=== PATIENT | female | born 1975 | race Caucasian/White ===

== ENCOUNTER 2017-03-08 14:47 | Emergency (ER) | payer OTHER ==
[2017-03-08 15:35] VITALS: BP 131/76; PULSE 90; RESP 18; TEMP 97.1
[2017-03-08] MEDS ORDERED: BACITRACIN 500 UNIT/GM OINT 28.4 GM TUBE TOPICAL ONE (16:06)
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
== END 2017-03-08 16:25 | disposition home or self-care (01) ==
LOC: EC 14:47
DX: T23.201A Burn of second degree of right hand, unspecified site, initial encounter (principal); Z88.2 Allergy status to sulfonamides; F17.200 Nicotine dependence, unspecified, uncomplicated; X08.8XXA Exposure to other specified smoke, fire and flames, initial encounter; Y92.69 Other specified industrial and construction area as the place of occurrence of the external cause
CPT/HCPCS: 16020; 99283

== ENCOUNTER 2020-08-24 18:46 | Emergency (ER) | payer OTHER ==
[2020-08-24] MEDS ORDERED: ACETAMINOPHEN TAB 500 MG TAB PO STA (19:14)
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
[2020-08-24] MEDS ORDERED: BACITRACIN OINT 1 EACH PACKET TOPICAL ONE (20:11)
[2020-08-24] MEDS ORDERED: LIDOCAINE 1% INJ 10MG/ML (20 ML MDV) SQ ONE (20:11)
[2020-08-24] MEDS ORDERED: ONDANSETRON ODT 4 MG TAB PO STA (20:44)
[2020-08-24] MEDS ORDERED: ACET/COD 300 MG/30 MG STARTER PACK 6 TAB BTL PO STA (21:08)
[2020-08-24 21:26] VITALS: BP 125/86; PULSE 88; RESP 16; TEMP 98.9
== END 2020-08-24 21:15 | disposition home or self-care (01) ==
LOC: EC 18:46
DX: S01.81XA Laceration without foreign body of other part of head, initial encounter (principal); S01.01XA Laceration without foreign body of scalp, initial encounter; S16.1XXA Strain of muscle, fascia and tendon at neck level, initial encounter; S05.41XA Penetrating wound of orbit with or without foreign body, right eye, initial encounter; S60.222A Contusion of left hand, initial encounter; F17.200 Nicotine dependence, unspecified, uncomplicated; Z88.2 Allergy status to sulfonamides; V69.9XXA Occupant (driver) (passenger) of heavy transport vehicle injured in unspecified traffic accident, initial encounter; Y92.410 Unspecified street and highway as the place of occurrence of the external cause
CPT/HCPCS: 73130; 72125; 70486; 70450; 99284; 12013; 12001; J2001

== ENCOUNTER → 2021-07-03 | Outpatient (CLI) | payer OTHER ==
--- NOTE | 2021-07-03 13:15 | XR ---
EXAMINATION TYPE: XR chest 2V DATE OF EXAM: 07/03/2021 COMPARISON: NONE TECHNIQUE: PA and lateral views submitted. HISTORY: Preop FINDINGS: The lungs are clear and there is no pneumothorax, pleural effusion, or focal pneumonia. Heart size normal. No overt failure. Mild hyperinflation. Hypertrophic and degenerative change of the spine. IMPRESSION: 1. No acute process.
[2021-07-03 14:07] LABS: Appearance,Urine Clear (Clear); Bilirubin,Urine Negative (Negative); Blood,Urine Negative (Negative); Color,Urine Yellow; Glucose,Urine (UA) Negative (Negative); Ketones,Urine Trace (Negative); Leukocyte Esterase,Urine Negative (Negative); Nitrite,Urine Negative (Negative); PH, Urine 5.5 (5.0-8.0); Protein,Urine Negative (Negative); Specific Gravity,Urine 1.024 (1.001-1.035); Urobilinogen,Urine <2.0 mg/dL (<2.0)
[2021-07-03 14:23] LABS: INR 0.9 (<1.2); Partial Thromboplastin Time 24.3 sec (22.0-30.0); Prothrombin Time 9.9 sec (9.0-12.0)
[2021-07-03 21:49] LABS: Basophils # (A) 0.03 X 10*3/uL (0.00-0.10); Basophils % (A) 0.5 %; Eosinophils # (A) 0.09 X 10*3/uL (0.04-0.35); Eosinophils % (A) 1.4 %; HCT 38.5 % (37.2-46.3); HGB 12.7 g/dL (12.0-15.0); Lymphocytes # (A) 1.41 X 10*3/uL (0.90-5.00); Lymphocytes % (A) 22.6 %; MCH 32.2 pg (27.0-32.0); MCV 97.7 fL (80.0-97.0); Mean Platelet Volume 10.6 fL (9.5-12.2); Monocytes # (A) 0.41 X 10*3/uL (0.20-1.00); Monocytes % (A) 6.6 %; Neutrophils # (A) 4.28 X 10*3/uL (1.80-7.70); Neutrophils % (A) 68.6 %; Platelet Count 239 X 10*3/uL (140-440); RBC 3.94 X 10*6/uL (4.10-5.20); RDW 13.2 % (11.5-14.5); WBC 6.24 X 10*3/uL (4.50-10.00)
[2021-07-04 04:05] LABS: African American GFR (CKD) 119.6 (60.0-200.0); Albumin 4.5 g/dL (3.80-4.90); Albumin/Globulin Ratio 1.96 (1.60-3.17); Anion Gap 10.6 mmol/L (4.00-12.00); BUN/Creat Ratio 28.57 Ratio (12.00-20.00); Carbon Dioxide 24.4 mmol/L (21.6-31.8); Globulin 2.3 g/dL (1.6-3.3); Non-African American GFR(CKD) 103.2 (60.0-200.0); Potassium 3.6 mmol/L (3.5-5.5); Total Bilirubin 0.8 mg/dL (0.2-1.2); Total Protein 6.8 g/dL (6.2-8.2)
== END | disposition home or self-care (01) ==
LOC: LABWHC1 12:25
PROVIDERS: ATTEND Specialist
DX: Z01.818 Encounter for other preprocedural examination (principal); M43.16 Spondylolisthesis, lumbar region; M48.061 Spinal stenosis, lumbar region without neurogenic claudication
CPT/HCPCS: 36415; 71046; 80053; 81003; 85025; 85610; 85730; 87070; 93005

== ENCOUNTER 2022-07-13 13:18 | Emergency (ER) | payer OTHER ==
[2022-07-13 13:33] VITALS: RESP 16; TEMP 97.7
[2022-07-13] MEDS ORDERED: LIDOCAINE 1% INJ 10MG/ML (20 ML MDV) SQ ONE (14:54)
[2022-07-13] MEDS ORDERED: CEFDINIR 300 MG CAP PO STA (16:01)
[2022-07-13] MEDS ORDERED: CLINDAMYCIN 150 MG CAP PO STA (16:01)
--- NOTE | 2022-07-13 16:09 | ED ---
Female Urogenital HPI - General Chief complaint: Urogenital Stated complaint: cyst Time Seen by Provider: 07/13/22 14:45 Source: patient Mode of arrival: ambulatory Limitations: no limitations - History of Present Illness Initial comments: 46-year-old female who presents to emergency room in with reported left labial pain. States that she has had multiple infected Bartholin cysts. She has had it drained "11" times. She has had swelling to the region for the past 3 weeks and it continues to grow in size. She was placed on Bactrim on . Re ports that it was draining however stopped. She denies vaginal bleeding or discharge. No hematuria, dysuria or difficult voiding. No changes in her bowel habits. No fevers. No other alleviating, precipitating or modifying factors - Related Data Previous Rx's Medication Instructions Recorded DULoxetine HCL 60 mg PO DAILY #30 cap 09/03/14 Ciprofloxacin HCl [Cipro] 500 mg PO Q12HR #20 tablet 09/25/14 traMADol HCl [Ultram] 50 mg PO Q6H PRN #20 tab 09/25/14 Amoxicillin/Potassium Clav 1 each PO Q12HR #20 tab 05/13/15 [Augmentin 875-125 Tablet] Ibuprofen [Motrin] 600 mg PO Q6HR PRN #20 tab 05/13/15 Cyclobenzaprine [Flexeril] 10 mg PO TID #20 tab 06/09/16 Hydrocodone/Acetaminophen [[place] 1 each PO Q6HR PRN #20 tab 06/09/16 5-325] dexAMETHasone 0.75 mg PO DIRECTED #12 tablet 06/09/16 Acetaminophen-Codeine 300-30mg 1 tab PO Q4H PRN #20 tablet 03/08/17 [Tylenol #3] Ibuprofen [Motrin] 600 mg PO Q8HR PRN #30 tab 03/08/17 ceFIXime [Cefixime] 400 mg PO QID #28 cap 07/13/22 clindamycin HCL [Cleocin] 300 mg PO Q6HR #28 cap 07/13/22 Allergies Allergy/AdvReac Type Severity Reaction Status Date / Time Sulfa (Sulfonamide Allergy Severe Rash/Hives Verified 07/13/22 13:34 Antibiotics) Review of Systems ROS Statement: Those systems with pertinent positive or pertinent negative responses have been documented in the HPI. ROS Other: All systems not noted in ROS Statement are negative. Past Medical History Past Medical History: No Reported History Additional Past Medical History / Comment(s): KIDNEY STONES History of Any Multi-Drug Resistant Organisms: None Reported Past Surgical History: Section, Hysterectomy Additional Past Surgical History / Comment(s): breast augmentation, Past Anesthesia/Blood Transfusion Reactions: No Reported Reaction Past Psychological History: Anxiety, Depression Smoking Status: Current every day smoker Past Alcohol Use History: Daily Past Drug Use History: None Reported General Exam Limitations: no limitations General appearance: alert, in no apparent distress Head exam: Present: normal inspection External exam: Present: other (induration to the left labia. no fluctuance. no pustular drainage - induration at the 4:00 position. no vaginal discharge. No vesicular lesions. no ecchymosis or lacerations. ) Course Vital Signs 07/13/22 07/13/22 13:30 16:42 Temperature 97.7 F Pulse Rate 89 88 Respiratory 16 16 Rate Blood Pressure 140/86 142/93 O2 Sat by Pulse 98 98 Oximetry Procedures - Incision & Drainage Consent Obtained: verbal consent Indication: abscess Site: vulva/vagina Size (cm): 2 Anesthetic Used: lidocaine 1% Amount (mLs): 5 I&D Cleaning Method: Chloroprep Sterile Field Used?: Yes Scalpel Used: #11 Needle Aspiration Performed?: No Irrigation Performed?: No I&D Drainage Obtained: Blood Culture Obtained?: No Patient Tolerated Procedure: well, other (no pustular drainage) Medical Decision Making - Medical Decision Making Upon arrival patient placed into room 22. Thorough history and physical exam is performed. Ultrasound is utilized which demonstrates possible fluid pocket. I did anesthetize the patient using 4 mL of 1% lidocaine without epinephrine. An incision is then made using an 11 blade scalpel. I am only able to express clotted blood. No pustular drainage. Patient does have significant induration to the tissue and therefore antibiotic will be changed to clindamycin and Cefixime. Patient will be given follow-up information for [employer] she may need further surgical procedure to definitively treat her Bartholin cyst. She is in structed to return for any worsening symptoms for patient was agreeable and discharged home in stable condition Disposition Clinical Impression: Cyst of Bartholin's gland duct, Vulval cellulitis Disposition: HOME SELF-CARE Condition: Stable Instructions (If sedation given, give patient instructions): Bartholin Cyst (ED) Additional Instructions: Please take the antibiotics as directed and follow up with the [employer] O[employer]. You may need permanent treatment for your Bartholin cyst. Return to the emergency room for any new or worsening symptoms Prescriptions: ceFIXime [Cefixime] 400 mg PO QID #28 cap clindamycin HCL [Cleocin] 300 mg PO Q6HR #28 cap Is patient prescribed a controlled substance at d/c from ED?: No Referrals: Nixon Nguyen MD [Primary Care Provider] - 1-2 days Kandice Grant MD [STAFF PHYSICIAN] - 1-2 days Caitlin Dey DO [Doctor of Osteopathic Medicine] - 1-2 days Time of Disposition: 16:07
[2022-07-13 16:44] VITALS: BP 142/93; PULSE 88
== END 2022-07-13 16:44 | disposition home or self-care (01) ==
LOC: EC 13:18
DX: N75.0 Cyst of Bartholin's gland (principal); N76.2 Acute vulvitis; L03.90 Cellulitis, unspecified; F41.9 Anxiety disorder, unspecified; F32.A Depression, unspecified; F17.200 Nicotine dependence, unspecified, uncomplicated; Z88.2 Allergy status to sulfonamides; Z79.899 Other long term (current) drug therapy
CPT/HCPCS: 99282; 10060; J2001

== ENCOUNTER 2023-04-27 14:50 | Observation (INO) | payer OTHER ==
[2023-04-27] MEDS ORDERED: SODIUM CHLORIDE 0.9% 1,000 ML IV STA ×2 (14:58→16:59)
--- NOTE | 2023-04-27 15:01 | ED ---
Abdominal Pain HPI - General Chief Complaint: Abdominal Pain Stated Complaint: Abd Pain Time Seen by Provider: 04/27/23 14:57 Source: patient, EMS, RN notes reviewed, old records reviewed Mode of arrival: EMS Limitations: no limitations - History of Present Illness Initial Comments: This is a 47-year-old female DF today for evaluation of abdominal pain nausea vomiting and severe abdominal pain. Patient has no fevers no diarrhea denies any other complaints. Patient states symptoms 5 days and severely worsening. Patient does have history of hysterectomy MD Complaint: abdominal pain -: days(s) (5) Location: periumbilical, epigastric, suprapubic Radiation: epigastric, suprapubic Migration to: periumbilical, epigastric, suprapubic, bilateral flank Severity: severe Severity scale (1-10): 10 Quality: cramping, stabbing, aching Consistency: constant Improves With: nothing Worsens With: nothing Associated Symptoms: nausea, vomiting, diarrhea Treatments Prior to Arrival: other (0) - Related Data Previous Rx's Medication Instructions Recorded DULoxetine HCL 60 mg PO DAILY #30 cap 09/03/14 Ciprofloxacin HCl [Cipro] 500 mg PO Q12HR #20 tablet 09/25/14 traMADol HCl [Ultram] 50 mg PO Q6H PRN #20 tab 09/25/14 Amoxicillin/Potassium Clav 1 each PO Q12HR #20 tab 05/13/15 [Augmentin 875-125 Tablet] Ibuprofen [Motrin] 600 mg PO Q6HR PRN #20 tab 05/13/15 Cyclobenzaprine [Flexeril] 10 mg PO TID #20 tab 06/09/16 Hydrocodone/Acetaminophen [[place] 1 each PO Q6HR PRN #20 tab 06/09/16 5-325] dexAMETHasone [Decadron] 0.75 mg PO DIRECTED #12 tablet 06/09/16 Acetaminophen-Codeine 300-30mg 1 tab PO Q4H PRN #20 tablet 03/08/17 [Tylenol #3] Ibuprofen [Motrin] 600 mg PO Q8HR PRN #30 tab 03/08/17 ceFIXime [Cefixime] 400 mg PO QID #28 cap 07/13/22 clindamycin HCL [Cleocin] 300 mg PO Q6HR #28 cap 07/13/22 Allergies Allergy/AdvReac Type Severity Reaction Status Date / Time Sulfa (Sulfonamide Allergy Severe Rash/Hives Verified 07/13/22 13:34 Antibiotics) Review of Systems ROS Statement: Those systems with pertinent positive or pertinent negative responses have been documented in the HPI. ROS Other: All systems not noted in ROS Statement are negative. Past Medical History Past Medical History: No Reported History Additional Past Medical History / Comment(s): KIDNEY STONES History of Any Multi-Drug Resistant Organisms: None Reported Past Surgical History: Section, Hysterectomy Additional Past Surgical History / Comment(s): breast augmentation, Past Anesthesia/Blood Transfusion Reactions: No Reported Reaction Past Psychological History: Anxiety, Depression Smoking Status: Current every day smoker Past Alcohol Use History: Daily Past Drug Use History: None Reported General Exam Limitations: no limitations General appearance: alert, in no apparent distress Head exam: Present: atraumatic, normocephalic, normal inspection Eye exam: Present: normal appearance, PERRL, EOMI. Absent: scleral icterus, conjunctival injection, periorbital swelling ENT exam: Present: normal exam, mucous membranes moist Neck exam: Present: normal inspection. Absent: tenderness, meningismus, lymphadenopathy Respiratory exam: Present: normal lung sounds bilaterally. Absent: respiratory distress, wheezes, rales, rhonchi, stridor Cardiovascular Exam: Present: regular rate, normal rhythm, normal heart sounds. Absent: systolic murmur, diastolic murmur, rubs, gallop, clicks GI/Abdominal exam: Present: soft, normal bowel sounds. Absent: distended, tenderness, guarding, rebound, rigid Extremities exam: Present: normal inspection, full ROM, normal capillary refill. Absent: tenderness, pedal edema, joint swelling, calf tenderness Back exam: Present: normal inspection Neurological exam: Present: alert, oriented X3, CN II-XII intact Psychiatric exam: Present: normal affect, normal mood Skin exam: Present: warm, dry, intact, normal color. Absent: rash Course Vital Signs 04/27/23 04/27/23 14:55 16:37 Temperature 97.4 F L Pulse Rate 76 53 L Respiratory 18 18 Rate Blood Pressure 135/82 114/82 O2 Sat by Pulse 96 96 Oximetry - Reevaluation(s) Reevaluation #1: 04/27/23 15:41 Medical record is reviewed Reevaluation #2: 04/27/23 15:41 Patient symptoms are improving Reevaluation #3: 04/27/23 15:41 Patient for results questions answered Reevaluation #4: 04/27/23 15:01 Was pt. sent in by a medical professional or institution? @ -no Did you speak to anyone other than the patient for history? @ -no Did you review nursing and triage notes? @ -agree Were old charts reviewed? @ -yes Differential Diagnosis? @ -prior EKG interpreted by me (3pts min.)? @ -yes X-rays interpreted by me (1pt min.)? @ -yes CT interpreted by me (1pt min.)? @ -no U/S interpreted by me (1pt. min.)? @ -no What testing was considered but not performed? (CT, X-rays, U/S, labs)? Why? @ -no What meds were considered but not given? Why? @ -no Did you discuss the management of the patient with other professionals? @ -no Did you reconcile home meds? @ -no Was smoking cessation discussed for >3mins.? @ -no Was critical care preformed (if so, how long)? @ -no Were there social determinants of health that impacted care today? How? (Homelessness, low income, unemployed, alcoholism, drug addiction, transportation, low edu. Level, literacy, decrease access to med. care, nursing home, rehab)? @ -no Was there de-escalation of care discussed even if they declined? (Discuss DNR or withdrawal of care, Hospice)? @ -no What co-morbidities impacted this encounter? (DM, HTN, Smoking, COPD, CAD, Cancer, CVA, Hep., AIDS, mental health diagnosis, sleep apnea, morbid obesity)? @ -none Was patient admitted / discharged? @ - Undiagnosed new problem with uncertain prognosis? @ -no Drug Therapy requiring intensive monitoring for toxicity (Heparin, Nitro, Insulin, Cardizem)? @ -no Were any procedures done? @ -no Diagnosis/symptom? @ - Acute, or Chronic, or Acute on Chronic? @ -acute Uncomplicated (without systemic symptoms) or Complicated (systemic symptoms)? @ -complicated Side effects of treatment? @ -no Exacerbation, Progression, or Severe Exacerbation] @ -no Poses a threat to life or bodily function? @ -yes Medical Decision Making - Lab Data Result diagrams: 04/27/23 14:59 04/27/23 14:59 Lab Results 04/27/23 04/27/23 04/27/23 Range/Units 14:59 14:59 14:59 WBC 7.2 (3.8-10.6) k/uL RBC 4.52 (3.80-5.40) m/uL Hgb 14.9 (11.4-16.0) gm/dL Hct 46.0 (34.0-46.0) % MCV 101.7 H (80.0-100.0) fL MCH 32.9 (25.0-35.0) pg MCHC 32.4 (31.0-37.0) g/dL RDW 13.2 (11.5-15.5) % Plt Count 215 (150-450) k/uL MPV 8.7 Neutrophils % 76 % Lymphocytes % 17 % Monocytes % 5 % Eosinophils % 1 % Basophils % 0 % Neutrophils # 5.4 (1.3-7.7) k/uL Lymphocytes # 1.2 (1.0-4.8) k/uL Monocytes # 0.4 (0-1.0) k/uL Eosinophils # 0.1 (0-0.7) k/uL Basophils # 0.0 (0-0.2) k/uL Macrocytosis Slight Sodium (137-145) mmol/L Potassium (3.5-5.1) mmol/L Chloride (98-107) mmol/L Carbon Dioxide (22-30) mmol/L Anion Gap mmol/L BUN (7-17) mg/dL Creatinine (0.52-1.04) mg/dL Est GFR (CKD-EPI)AfAm (>60 ml/min/1.73 sqM) Est GFR (CKD-EPI)NonAf (>60 ml/min/1.73 sqM) Glucose (74-99) mg/dL Calcium (8.4-10.2) mg/dL Total Bilirubin (0.2-1.3) mg/dL AST (14-36) U/L ALT (4-34) U/L Alkaline Phosphatase (38-126) U/L Total Protein (6.3-8.2) g/dL Albumin (3.5-5.0) g/dL Amylase (30-110) U/L Lipase (23-300) U/L Urine Color Light Yellow Urine Appearance Clear (Clear) Urine pH 5.5 (5.0-8.0) Ur Specific [place] 1.014 (1.001-1.035) Urine Protein Negative (Negative) Urine Glucose (UA) Negative (Negative) Urine Ketones 1+ H (Negative) Urine Blood Negative (Negative) Urine Nitrite Negative (Negative) Urine Bilirubin Negative (Negative) Urine Urobilinogen <2.0 (<2.0) mg/dL Ur Leukocyte Esterase Negative (Negative) Urine HCG, Qual Not Detected (Not Detectd) 04/27/23 Range/Units 14:59 WBC (3.8-10.6) k/uL RBC (3.80-5.40) m/uL Hgb (11.4-16.0) gm/dL Hct (34.0-46.0) % MCV (80.0-100.0) fL MCH (25.0-35.0) pg MCHC (31.0-37.0) g/dL RDW (11.5-15.5) % Plt Count (150-450) k/uL MPV Neutrophils % % Lymphocytes % % Monocytes % % Eosinophils % % Basophils % % Neutrophils # (1.3-7.7) k/uL Lymphocytes # (1.0-4.8) k/uL Monocytes # (0-1.0) k/uL Eosinophils # (0-0.7) k/uL Basophils # (0-0.2) k/uL Macrocytosis Sodium 143 (137-145) mmol/L Potassium 3.8 (3.5-5.1) mmol/L Chloride 114 H (98-107) mmol/L Carbon Dioxide 16 L (22-30) mmol/L Anion Gap 13 mmol/L BUN 8 (7-17) mg/dL Creatinine 0.56 (0.52-1.04) mg/dL Est GFR (CKD-EPI)AfAm >90 (>60 ml/min/1.73 sqM) Est GFR (CKD-EPI)NonAf >90 (>60 ml/min/1.73 sqM) Glucose 101 H (74-99) mg/dL Calcium 9.5 (8.4-10.2) mg/dL Total Bilirubin 0.9 (0.2-1.3) mg/dL AST 42 H (14-36) U/L ALT 35 H (4-34) U/L Alkaline Phosphatase 117 (38-126) U/L Total Protein 6.8 (6.3-8.2) g/dL Albumin 4.0 (3.5-5.0) g/dL Amylase 92 (30-110) U/L Lipase 248 (23-300) U/L Urine Color Urine Appearance (Clear) Urine pH (5.0-8.0) Ur Specific [place] (1.001-1.035) Urine Protein (Negative) Urine Glucose (UA) (Negative) Urine Ketones (Negative) Urine Blood (Negative) Urine Nitrite (Negative) Urine Bilirubin (Negative) Urine Urobilinogen (<2.0) mg/dL Ur Leukocyte Esterase (Negative) Urine HCG, Qual (Not Detectd) Disposition Referrals: Nixon Nguyen MD [Primary Care Provider] - 1-2 days
[2023-04-27] MEDS ORDERED: LORazepam 2 MG/ML INJ IV STA (15:03)
[2023-04-27] MEDS ORDERED: HYDROmorphone 1 MG/ML 1 ML SYRINGE IVP STA ×2 (15:04→16:59)
[2023-04-27 15:21] LABS: Basophils % (A) 0 %; Eosinophils # (A) 0.1 k/uL (0-0.7); Eosinophils % (A) 1 %; HGB 14.9 gm/dL (11.4-16.0); Lymphocytes # (A) 1.2 k/uL (1.0-4.8); Lymphocytes % (A) 17 %; MCH 32.9 pg (25.0-35.0); MCHC 32.4 g/dL (31.0-37.0); MCV 101.7 fL (80.0-100.0); Macrocytosis Slight; Mean Platelet Volume 8.7; Monocytes # (A) 0.4 k/uL (0-1.0); Monocytes % (A) 5 %; Neutrophils # (A) 5.4 k/uL (1.3-7.7); Neutrophils % (A) 76 %; Platelet Count 215 k/uL (150-450); RBC 4.52 m/uL (3.80-5.40); RDW 13.2 % (11.5-15.5); WBC 7.2 k/uL (3.8-10.6)
[2023-04-27 15:38] LABS: ALT 35 U/L (4-34); AST 42 U/L (14-36); African American GFR (CKD) >90 (>60 ml/min/1.73 sqM); Alkaline Phosphatase 117 U/L (38-126); Amylase 92 U/L (30-110); Anion Gap 13 mmol/L; Blood Urea Nitrogen 8 mg/dL (7-17); Calcium 9.5 mg/dL (8.4-10.2); Carbon Dioxide 16 mmol/L (22-30); Chloride 114 mmol/L (98-107); Glucose 101 mg/dL (74-99); Lipase 248 U/L (23-300); Non-African American GFR(CKD) >90 (>60 ml/min/1.73 sqM); Potassium 3.8 mmol/L (3.5-5.1); Sodium 143 mmol/L (137-145); Total Bilirubin 0.9 mg/dL (0.2-1.3); Total Protein 6.8 g/dL (6.3-8.2)
[2023-04-27 16:49] LABS: Appearance,Urine Clear (Clear); Bilirubin,Urine Negative (Negative); Blood,Urine Negative (Negative); Color,Urine Light Yellow; Glucose,Urine (UA) Negative (Negative); Ketones,Urine 1+ (Negative); Leukocyte Esterase,Urine Negative (Negative); Nitrite,Urine Negative (Negative); PH, Urine 5.5 (5.0-8.0); Protein,Urine Negative (Negative); Specific Gravity,Urine 1.014 (1.001-1.035); Urobilinogen,Urine <2.0 mg/dL (<2.0)
[2023-04-27] MEDS ORDERED: ONDANSETRON 4 MG/2 ML VIAL IVP PRN (20:50)
[2023-04-27] MEDS ORDERED: NALOXONE 0.4 MG/ML 1 ML VIAL IV PRN (20:50)
--- NOTE | 2023-04-27 21:10 | CT ---
EXAMINATION TYPE: CT abdomen pelvis w con DATE OF EXAM: 04/27/2023 COMPARISON: 07/19/2013 INDICATION: Abdominal pain, N/V/D x5days. DLP: 554 mGycm, Automated exposure control for dose reduction was used. CONTRAST: 100 ml mL of Isovue 300. Study performed without Oral Contrast TECHNIQUE: Axial images were obtained from above the diaphragm to the pubic rami in the axial plane a t 5 mm thick sections. Reconstructed images are reviewed on the computer in the coronal plane. FINDINGS: Limited CT sections are obtained the lung bases. The lung bases are clear. CT ABDOMEN: Liver: Normal Spleen: Normal Pancreas: Normal Adrenal glands: The adrenal glands are normal. Gallbladder: Normal Kidneys: No masses are evident. No hydronephrosis is present. No cysts are present. Aorta: Normal Inferior vena cava: Normal. CT PELVIS: Loops of bowel within the abdomen and pelvis are normal. No dilated loops of bowel are evident. N o mass effect is evident. No fecal retention is evident.This study is without oral contrast limiting bowel evaluation. Appendix: Not identified. No dilated tubular structure or inflammatory changes are evident. Urinary bladder: Normal. Genitourinary structures: Uterus and ovaries are identified. Osseous structures: No suspicious lytic or sclerotic lesions. Being hardening artifact from pedicle s crews and fixation rods in the lower lumbar spine are present. IMPRESSIONS: 1. No acute changes to account for nausea or vomiting.
[2023-04-27] MEDS: ONDANSETRON 4 MG/2 ML VIAL IVP PRN (22:13)
[2023-04-27] MEDS: SODIUM CHLORIDE 0.9% 1,000 ML IV SCH (23:20)
[2023-04-28] MEDS: MELATONIN 3 MG TABLET PO SCH ×2 (00:30→21:59)
[2023-04-28] MEDS: HYDROmorphone 1 MG/ML 1 ML SYRINGE IVP PRN ×5 (01:42→22:00)
[2023-04-28] MEDS: SODIUM CHLORIDE 0.9% 1,000 ML IV SCH ×2 (05:57→12:12)
[2023-04-28] MEDS: ONDANSETRON 4 MG/2 ML VIAL IVP PRN (06:23)
[2023-04-28 06:28] LABS: Basophils % (A) 0 %; Eosinophils % (A) 0 %; HCT 40.8 % (34.0-46.0); Lymphocytes # (A) 1.1 k/uL (1.0-4.8); Lymphocytes % (A) 15 %; MCH 32.3 pg (25.0-35.0); MCHC 31.9 g/dL (31.0-37.0); MCV 101.1 fL (80.0-100.0); Macrocytosis Slight; Monocytes # (A) 0.4 k/uL (0-1.0); Monocytes % (A) 5 %; Neutrophils # (A) 5.8 k/uL (1.3-7.7); Neutrophils % (A) 78 %; Platelet Count 168 k/uL (150-450); RBC 4.03 m/uL (3.80-5.40); RDW 13.4 % (11.5-15.5); WBC 7.5 k/uL (3.8-10.6)
[2023-04-28 06:53] LABS: ALT 27 U/L (4-34); AST 29 U/L (14-36); African American GFR (CKD) >90 (>60 ml/min/1.73 sqM); Albumin 3.3 g/dL (3.5-5.0); Alkaline Phosphatase 85 U/L (38-126); Anion Gap 7 mmol/L; Blood Urea Nitrogen 8 mg/dL (7-17); Calcium 8.2 mg/dL (8.4-10.2); Carbon Dioxide 22 mmol/L (22-30); Chloride 111 mmol/L (98-107); Glucose 103 mg/dL (74-99); Non-African American GFR(CKD) >90 (>60 ml/min/1.73 sqM); Sodium 140 mmol/L (137-145); Total Bilirubin 0.6 mg/dL (0.2-1.3); Total Protein 5.8 g/dL (6.3-8.2)
[2023-04-28] MEDS: PANTOPRAZOLE 40 MG/10 ML VIAL IVP SCH ×2 (08:51→21:59)
[2023-04-28] MEDS: SIMETHICONE 80 MG CHEWABLE PO SCH ×4 (08:57→21:59)
--- NOTE | 2023-04-28 14:48 | P.GSCN ---
History of Present Illness Consult date: 04/28/23 History of present illness: CHIEF COMPLAINT: Abdominal pain HISTORY OF PRESENT ILLNESS: This is a 47-year-old female presented with abdominal pain with nausea vomiting and diarrhea 1 week. She's having about 3- 4 episodes of loose stools daily. She denies any blood in the stools. Last episode of emesis was yesterday. Patient denies any recent traveling. Denies a [place] recent contacts. Denies being on any recent antibiotics. She does have a history of alcohol use and pain medication abuse. She reports that most of her pain is in the epigastric and right upper quadrant area. Computed tomography scan of the abdomen was negative. PAST MEDICAL HISTORY: Kidney stones PAST SURGICAL HISTORY: and hysterectomy MEDICATIONS: See below ALLERGIES: See below SOCIAL HISTORY: No illicit drug use. History of addiction to pain medication. Has not used pain meds for 3 years. History of daily alcohol use. Last used on Wednesday. REVIEW OF SYSTEMS: CONSTITUTIONAL: Denies fever or chills. HEENT: Denies blurred vision, vision changes, or eye pain. Denies hemoptysis CARDIOVASCULAR: Denies chest pain or pressure. RESPIRATORY: No shortness of breath. GASTROINTESTINAL: See HPI for pertinent findings HEMATOLOGIC: Denies bleeding disorders. GENITOURINARY: Denies any blood in urine or increased urinary frequency. SKIN: Denies pruitis. Denies rash. PHYSICAL EXAM: VITAL SIGNS: Reviewed GENERAL: Well-developed in no acute distress. HEENT: No sclera icterus. Extraocular movements grossly intact. Moist buccal mucosa. Head is atraumatic, normocephalic. No nasal drainage. ABDOMEN: Soft. Nondistended. Tenderness to palpation in the right upper quadrant and epigastric area NEUROLOGIC: Alert and oriented. Cranial nerves II through XII grossly intact. LABORATORY DATA: WBC 7.5 Hgb 13 platelets 168 Sodium is 140 potassium 4.0 creatinine 0.56 LFTs normal Urinalysis negative IMAGING: Computed tomography scan findings as stated above ASSESSMENT: 1. Epigastric pain and right upper quadrant abdominal pain 2. Nausea, vomiting and diarrhea PLAN: -Patient scheduled for EGD tomorrow with Dr. kimball -MABELA scan ordered for evaluation of abdominal pain to rule out gallbladder dysfunction -Nothing by mouth after midnight -Continue supportive care -Down grade diet to full liquids Thank you for this consultation Physician Patient Admitting Representative note has been reviewed by physician. Signing provider agrees with the documented findings, assessment, and plan of care. Past Medical History Past Medical History: No Reported History Additional Past Medical History / Comment(s): KIDNEY STONES History of Any Multi-Drug Resistant Organisms: None Reported Past Surgical History: Section, Hysterectomy Additional Past Surgical History / Comment(s): breast augmentation, Past Anesthesia/Blood Transfusion Reactions: No Reported Reaction Past Psychological History: Anxiety, Depression Smoking Status: Current every day smoker Past Alcohol Use History: Daily Past Drug Use History: None Reported Additional Drug Use History / Comment(s): Past history of Medications and Allergies Home Medications Medication Instructions Recorded Confirmed Type Dextroamphetamine/Amphetamine 20 mg PO BID 04/27/23 04/27/23 History [Adderall] cloNIDine HCL [Catapres] 0.6 mg PO HS 04/27/23 04/27/23 History Allergies Allergy/AdvReac Type Severity Reaction Status Date / Time Sulfa (Sulfonamide Allergy Severe Rash/Hives Verified 04/27/23 19:17 Antibiotics) Surgical - Exam Vital Signs Temp Pulse Resp BP Pulse Ox 97.4 F L 76 18 135/82 96 04/27/23 14:55 04/27/23 14:55 04/27/23 14:55 04/27/23 14:55 04/27/23 14:55 Results - Labs 04/28/23 05:37 04/28/23 05:37 Abnormal Lab Results - Last 24 Hours (Table) 04/27/23 04/27/23 04/27/23 Range/Units 14:59 14:59 14:59 MCV 101.7 H (80.0-100.0) fL Chloride 114 H (98-107) mmol/L Carbon Dioxide 16 L (22-30) mmol/L Glucose 101 H (74-99) mg/dL Calcium (8.4-10.2) mg/dL AST 42 H (14-36) U/L ALT 35 H (4-34) U/L Total Protein (6.3-8.2) g/dL Albumin (3.5-5.0) g/dL Urine Ketones 1+ H (Negative) 04/28/23 04/28/23 Range/Units 05:37 05:37 MCV 101.1 H (80.0-100.0) fL Chloride 111 H (98-107) mmol/L Carbon Dioxide (22-30) mmol/L Glucose 103 H (74-99) mg/dL Calcium 8.2 L (8.4-10.2) mg/dL AST (14-36) U/L ALT (4-34) U/L Total Protein 5.8 L (6.3-8.2) g/dL Albumin 3.3 L (3.5-5.0) g/dL Urine Ketones (Negative) Diabetes panel 04/27/23 04/28/23 Range/Units 14:59 05:37 Sodium 143 140 (137-145) mmol/L Potassium 3.8 4.0 (3.5-5.1) mmol/L Chloride 114 H 111 H (98-107) mmol/L Carbon Dioxide 16 L 22 (22-30) mmol/L BUN 8 8 (7-17) mg/dL Creatinine 0.56 0.56 (0.52-1.04) mg/dL Glucose 101 H 103 H (74-99) mg/dL Calcium 9.5 8.2 L (8.4-10.2) mg/dL AST 42 H 29 (14-36) U/L ALT 35 H 27 (4-34) U/L Alkaline Phosphatase 117 85 (38-126) U/L Total Protein 6.8 5.8 L (6.3-8.2) g/dL Albumin 4.0 3.3 L (3.5-5.0) g/dL Calcium panel 04/27/23 04/28/23 Range/Units 14:59 05:37 Calcium 9.5 8.2 L (8.4-10.2) mg/dL Albumin 4.0 3.3 L (3.5-5.0) g/dL Pituitary panel 04/27/23 04/28/23 Range/Units 14:59 05:37 Sodium 143 140 (137-145) mmol/L Potassium 3.8 4.0 (3.5-5.1) mmol/L Chloride 114 H 111 H (98-107) mmol/L Carbon Dioxide 16 L 22 (22-30) mmol/L BUN 8 8 (7-17) mg/dL Creatinine 0.56 0.56 (0.52-1.04) mg/dL Glucose 101 H 103 H (74-99) mg/dL Calcium 9.5 8.2 L (8.4-10.2) mg/dL Adrenal panel 04/27/23 04/28/23 Range/Units 14:59 05:37 Sodium 143 140 (137-145) mmol/L Potassium 3.8 4.0 (3.5-5.1) mmol/L Chloride 114 H 111 H (98-107) mmol/L Carbon Dioxide 16 L 22 (22-30) mmol/L BUN 8 8 (7-17) mg/dL Creatinine 0.56 0.56 (0.52-1.04) mg/dL Glucose 101 H 103 H (74-99) mg/dL Calcium 9.5 8.2 L (8.4-10.2) mg/dL Total Bilirubin 0.9 0.6 (0.2-1.3) mg/dL AST 42 H 29 (14-36) U/L ALT 35 H 27 (4-34) U/L Alkaline Phosphatase 117 85 (38-126) U/L Total Protein 6.8 5.8 L (6.3-8.2) g/dL Albumin 4.0 3.3 L (3.5-5.0) g/dL
[2023-04-29] MEDS: SODIUM CHLORIDE 0.9% 1,000 ML IV SCH ×4 (00:43→19:52)
[2023-04-29] MEDS: HYDROmorphone 1 MG/ML 1 ML SYRINGE IVP PRN ×5 (01:09→21:39)
--- NOTE | 2023-04-29 09:41 | P.HPIM ---
History of Present Illness H&P Date: 04/28/23 Chief Complaint: abd pain Subha Teague is a 47 yo F who presented to the ED with 1 week history of nausea, vomiting, and abdominal pain. She complains that after eating she has been experiencing early satiety and recurrent nausea as well as upper abdominal discomfort. She denies fever, chills, sweats. No history of abdominal surgeries. She does endorse regular alcohol use, denies any recent change in her diet, denies any specific trigger before this started. On presentation vitals stable, labs with mildly elevated AST/ALT, lipase 248, CT abd/pelvis no acute process. Review of Systems All systems: negative Constitutional: Denies chills, Denies fever Eyes: denies blurred vision, denies pain Ears, nose, mouth and throat: Denies headache, Denies sore throat Cardiovascular: Denies chest pain, Denies shortness of breath Respiratory: Denies cough Gastrointestinal: Reports abdominal pain, Reports nausea, Reports vomiting, Denies diarrhea Genitourinary: Denies dysuria, Denies hematuria Musculoskeletal: Denies myalgias Integumentary: Denies pruritus, Denies rash Neurological: Denies numbness, Denies weakness Psychiatric: Denies anxiety, Denies depression Endocrine: Denies fatigue, Denies weight change Past Medical History Past Medical History: No Reported History Additional Past Medical History / Comment(s): KIDNEY STONES History of Any Multi-Drug Resistant Organisms: None Reported Past Surgical History: Section, Hysterectomy Additional Past Surgical History / Comment(s): breast augmentation, Past Anesthesia/Blood Transfusion Reactions: No Reported Reaction Past Psychological History: Anxiety, Depression Smoking Status: Current every day smoker Past Alcohol Use History: Daily Past Drug Use History: None Reported Additional Drug Use History / Comment(s): Past history of Medications and Allergies Home Medications Medication Instructions Recorded Confirmed Type Dextroamphetamine/Amphetamine 20 mg PO BID 04/27/23 04/27/23 History [Adderall] cloNIDine HCL [Catapres] 0.6 mg PO HS 04/27/23 04/27/23 History Allergies Allergy/AdvReac Type Severity Reaction Status Date / Time Sulfa (Sulfonamide Allergy Severe Rash/Hives Verified 04/27/23 19:17 Antibiotics) Physical Exam Vitals: Vital Signs Temp Pulse Resp BP Pulse Ox 04/29/23 01:08 97.4 F L 57 L 16 128/85 96 04/28/23 21:59 58 L 18 04/28/23 19:11 98.9 F 58 L 15 131/75 98 04/28/23 15:00 98.5 F 67 18 124/71 98 Intake and Output 04/28/23 04/29/23 04/29/23 22:59 06:59 14:59 Other: Voiding Method Toilet # Voids 2 2 Gen: well nourished, well developed female in NAD HEENT: NC/AT, mmm Neck: supple, no JVD or thyromegaly CV: RRR, no murmur Lungs: normal effort, clear throughout Abd: soft, epigastric and RUQ tenderness. BS+ Neuro: AAOx3, no focal deficit skin: warm and dry Results CBC & Chem 7: 04/28/23 05:37 04/28/23 05:37 Thrombosis Risk Factor Assmnt - Choose All That Apply Any of the Below Risk Factors Present?: Yes Each Factor Represents 1 point: Age 41-60 years Other Risk Factors: No Other congenital or acquired thrombophilia - If yes, enter type in comment: No Thrombosis Risk Factor Assessment Total Risk Factor Score: 1 Thrombosis Risk Factor Assessment Level: Low Risk Assessment and Plan Plan: 1. Abdominal pain. Consult surgery for further recommendations. IV protonix, simethicone. HIDA scan
[2023-04-29] MEDS ORDERED: LIDOCAINE 2% INJ 20 MG/ML (2 ML VIAL) ONE (09:47)
[2023-04-29] MEDS ORDERED: PROPOFOL 10 MG/ML 20 ML VIAL IV ONE (09:47)
[2023-04-29] MEDS ORDERED: IV FLUID CONTINUATION 1,000 ML IV ONE ×2 (09:48)
--- NOTE | 2023-04-29 09:57 | P.OP ---
Date of Procedure: 04/29/23 Preoperative Diagnosis: Nausea Postoperative Diagnosis: Mild antral gastritis Procedure(s) Performed: EGD Anesthesia: MAC Surgeon: Praful Aiken Pathology: none sent Condition: stable Disposition: PACU Description of Procedure: The patient's placed on the endoscopy table in the lateral position. She re ceived IV sedation. The gastroscope placed oropharynx passed in the esophagus and stomach. Scope was placed through the pylorus. The first and second portion of the duodenum appeared normal. Scope was then brought back the antrum and this appeared mildly inflamed. A biopsies performed. Copious was then retroflexed and the remainder the stomach appeared normal. There was no hiatal hernia. The GE junction was at 40 cm the distal esophagus. Normal. The proximal esophagus appeared normal. Scope withdrawn for patient.
--- NOTE | 2023-04-29 09:58 | NM ---
Nuclear medicine hepatobiliary scan. HISTORY: Pain. DOSAGE: The patient received 8 0z Ensure plus and 4.9 mCi of Technetium 99m Choletec. FINDINGS: There is normal hepatic extraction. The gallbladder is not seen at 2 hours.. There is robert iary to bowel clearance by 30 minutes. Ejection fraction could not be obtained as the gallbladder wa s not visualized. IMPRESSION: 1. Nonvisualization of the gallbladder at 2 hours compatible with cholecystitis.
[2023-04-29] MEDS: PANTOPRAZOLE 40 MG/10 ML VIAL IVP SCH ×2 (10:25→20:33)
[2023-04-29] MEDS: SIMETHICONE 80 MG CHEWABLE PO SCH ×4 (10:25→20:33)
--- NOTE | 2023-04-29 13:41 | P.PN ---
Progress Note - Text Progress Note Date: 04/29/23 Patient not seen, off the floor for EGD, HIDA scan.
[2023-04-29] MEDS: ONDANSETRON 4 MG/2 ML VIAL IVP PRN (14:17)
[2023-04-29] MEDS: PIPERACILLIN-TAZOBACTAM 3.375 GM in SODIUM CHLORIDE 0.9% 100 ML IVPB SCH (16:52)
[2023-04-29] MEDS: MELATONIN 3 MG TABLET PO SCH (20:33)
[2023-04-29 21:36] VITALS: TEMP 98.5
[2023-04-30] MEDS: PIPERACILLIN-TAZOBACTAM 3.375 GM in SODIUM CHLORIDE 0.9% 100 ML IVPB SCH ×2 (00:39→07:35)
[2023-04-30] MEDS: HYDROmorphone 1 MG/ML 1 ML SYRINGE IVP PRN ×2 (00:39→07:34)
[2023-04-30] MEDS: SODIUM CHLORIDE 0.9% 1,000 ML IV SCH ×2 (00:39→11:24)
[2023-04-30 03:49] VITALS: RESP 18
[2023-04-30] MEDS: SIMETHICONE 80 MG CHEWABLE PO SCH (07:35)
[2023-04-30] MEDS: PANTOPRAZOLE 40 MG/10 ML VIAL IVP SCH (07:35)
[2023-04-30 08:09] VITALS: BP 149/84; PULSE 64
--- NOTE | 2023-04-30 11:51 | P.PN ---
Subjective Progress Note Date: 04/30/23 CHIEF COMPLAINT: Right upper quadrant abdominal pain HISTORY OF PRESENT ILLNESS: Patient status post EGD that revealed mild antral gastritis. Patient had HIDA scan completed showing nonvisualization of the gallbladder at 2 hours compatible with cholecystitis. Patient does complain of right upper quadrant abdominal pain and she feels that the pain is tolerable. She is tolerating diet. She has been up and ambulating. Denies any nausea or vomiting. She is agreeable to outpatient cholecystectomy. Afebrile PHYSICAL EXAM: VITAL SIGNS: Reviewed. GENERAL: Well-developed in no acute distress. HEENT: No sclera icterus. Extraocular movements grossly intact. Moist buccal mucosa. Head is atraumatic, normocephalic. ABDOMEN: Soft. Nondistended. Tenderness palpation right upper quadrant NEUROLOGIC: Alert and oriented. Cranial nerves II through XII grossly intact. ASSESSMENT: 1. Acute cholecystitis 2. Gastritis PLAN: -Patient can be discharge from surgical standpoint -Patient scheduled for outpatient laparoscopic cholecystectomy on 05/03/[address] kimball Physician Collection Supervisor note has been reviewed by physician. Signing provider agrees with the documented findings, assessment, and plan of care. Objective - Vital Signs Vital signs: Vital Signs Temp 98.5 F 04/30/23 07:25 Pulse 64 04/30/23 07:25 Resp 18 04/30/23 07:25 BP 149/84 04/30/23 07:25 Pulse Ox 99 04/30/23 07:25 FiO2 Intake & Output 04/29/23 04/30/23 04/30/23 18:59 06:59 18:59 Intake Total 50 Balance 50 Intake: IV 50 Other: Voiding Method Toilet Toilet Toilet # Voids 1 2 - Labs CBC & Chem 7: 04/28/23 05:37 04/28/23 05:37
--- NOTE | 2023-04-30 14:48 | P.DS ---
Providers Date of admission: 04/27/23 20:50 Expected date of discharge: 04/30/23 Attending physician: Nixon Nguyen MD Consults: 04/28/23 09:13 Consult Physician Routine Consulting Provider: Praful Aiken Consult Reason/Comments: abd pain Do you want consulting provider notified?: Yes Primary care physician: Nixon Nguyen MD Hospital Course: Final Diagnoses: Acute cholecystitis Mild antral gastritis Hospital course:Subha Teague is a 47 yo F who presented to the ED with 1 week history of nausea, vomiting, and abdominal pain. She complains that after eating she has been experiencing early satiety and recurrent nausea as well as upper abdominal discomfort. She denies fever, chills, sweats. No history of abdominal surgeries. She does endorse regular alcohol use, denies any recent change in her diet, denies any specific trigger before this started. On presentation vitals stable, labs with mildly elevated AST/ALT, lipase 248, CT abd/pelvis no acute process. Evaluated by Gen. surgery regarding abdominal pain. Completed EGD reportedly mild antral gastritis. Proceeded with HIDA scan reporting nonvisualization of the gallbladder at 2 hours compatible with cholecystitis in a patient with right upper quadrant abdominal pain. Scheduled for outpatient laparoscopic cholecystectomy on Wednesday. Maintained on IV antibiotics and gentle IV fluid hydration. Tolerating clear liquid diet with no nausea vomiting or diarrhea. Right upper quadrant abdominal pain significantly lessened. Ambulating, tolerating exertion well. Patient will be discharged home today in a stable condition with guarded prognosis pending final DC recommendations and clearance per general surgery. The impression and plan of care has been dictated as directed. : I performed a history and examination of this patient, discussed the same with the dictator. I agree with the dictator's note ,documented as a scribe. Any additional findings or plans will be noted. Patient Condition at Discharge: Stable Plan - Discharge Summary Discharge Rx Participant: No New Discharge Prescriptions: New Amoxic-Pot Clav 875-125Mg [Augmentin 875-125] 1 tab PO Q12HR 7 Days #14 tab HYDROcodone/APAP 5-325MG [[place] 5-325] 1 tab PO Q6HR PRN 3 Days #12 tab PRN Reason: Pain Continue Dextroamphetamine/Amphetamine [Adderall] 20 mg PO BID cloNIDine HCL [Catapres] 0.6 mg PO HS Discharge Medication List Dextroamphetamine/Amphetamine [Adderall] 20 mg PO BID 04/27/23 [History] cloNIDine HCL [Catapres] 0.6 mg PO HS 04/27/23 [History] Amoxic-Pot Clav 875-125Mg [Augmentin 875-125] 1 tab PO Q12HR 7 Days #14 tab 04/30/23 [Rx] HYDROcodone/APAP 5-325MG [[place] 5-325] 1 tab PO Q6HR PRN 3 Days #12 tab 04/30/23 [Rx] Follow up Appointment(s)/Referral(s): Nixon Nguyen MD [Primary Care Provider] - 1 Week Praful Aiken MD [STAFF PHYSICIAN] - 05/03/23 Patient Instructions/Handouts: Gastritis (DC), Laparoscopic Cholecystectomy (DC) Activity/Diet/Wound Care/Special Instructions: Diet: low fat Stay hydrated. Scheduled for Laparoscopic cholecystectomy outpatient on 05/03/2023 Discharge Disposition: HOME SELF-CARE
== END 2023-04-30 11:56 | disposition home or self-care (01) ==
LOC: EC 14:50 → 6NMEDSUR 20:50
PROVIDERS: ADMIT Family Medicine; ATTEND Family Medicine
DX: K29.50 Unspecified chronic gastritis without bleeding (principal); R68.81 Early satiety; Z87.442 Personal history of urinary calculi; Z98.891 History of uterine scar from previous surgery; Z90.710 Acquired absence of both cervix and uterus; Z98.890 Other specified postprocedural states; F41.9 Anxiety disorder, unspecified; F32.A Depression, unspecified; F17.200 Nicotine dependence, unspecified, uncomplicated; Z79.899 Other long term (current) drug therapy; Z88.2 Allergy status to sulfonamides
CPT/HCPCS: 96376 ×4; 96361 ×3; 96365; 96366 ×2; 96375 ×3; 99285; 36415; 88305; 80053 ×2; 82150; 83690; 85025 ×2; 81003; 81025; 74177; 78226; 43239; G0378 ×4; A9537; J2543 ×2; J2060; J2405 ×3; J1170 ×4; J2704; C9113 ×3; Q9967; J2001

== ENCOUNTER 2023-04-30 15:56 | Observation (INO) | payer OTHER ==
[2023-04-30] MEDS ORDERED: ONDANSETRON 4 MG/2 ML VIAL IVP STA (16:08)
[2023-04-30] MEDS ORDERED: SODIUM CHLORIDE 0.9% 1,000 ML IV STA (16:08)
--- NOTE | 2023-04-30 16:30 | ED ---
Recheck HPI - General Chief Complaint: Abdominal Pain Stated Complaint: nausea, vomiting Time Seen by Provider: 04/30/23 16:05 Source: patient, EMS, RN notes reviewed, old records reviewed Mode of arrival: EMS Limitations: no limitations - History of Present Illness Initial Comments: This is a 47-year-old female to the ER today. Patient presents today for evaluation regards to persistent abdominal pain with nausea vomiting scheduled for gallbladder surgery. Patient did not want to be possibly longer went home but symptoms persisted upon discharge. Patient comes back treatments are in for severe nausea vomiting abdominal pain. MD Complaint: other (Persistent nausea vomiting with impending gallbladder surgery) -: hour(s) Returns Today for: Called Because of Abnormal Lab/Test, persistent/worsening pain related to initial visit Symptoms Since Prior Visit: worsening pain Associated Symptoms: nausea, abdominal pain Treatments Prior to Arrival: Given Pain Meds on, other - Related Data Home Medications Medication Instructions Recorded Confirmed Dextroamphetamine/Amphetamine 20 mg PO BID 04/27/23 04/27/23 [Adderall] cloNIDine HCL [Catapres] 0.6 mg PO HS 04/27/23 04/27/23 Previous Rx's Medication Instructions Recorded Amoxic-Pot Clav 875-125Mg 1 tab PO Q12HR 7 Days #14 tab 04/30/23 [Augmentin 875-125] HYDROcodone/APAP 5-325MG [[place] 1 tab PO Q6HR PRN 3 Days #12 tab 04/30/23 5-325] Allergies Allergy/AdvReac Type Severity Reaction Status Date / Time Sulfa (Sulfonamide Allergy Severe Rash/Hives Verified 04/30/23 16:02 Antibiotics) Review of Systems ROS Statement: Those systems with pertinent positive or pertinent negative responses have been documented in the HPI. ROS Other: All systems not noted in ROS Statement are negative. Past Medical History Past Medical History: No Reported History Additional Past Medical History / Comment(s): KIDNEY STONES History of Any Multi-Drug Resistant Organisms: None Reported Past Surgical History: Section, Hysterectomy Additional Past Surgical History / Comment(s): breast augmentation, Past Anesthesia/Blood Transfusion Reactions: No Reported Reaction Past Psychological History: Anxiety, Depression Smoking Status: Current every day smoker Past Alcohol Use History: Daily Past Drug Use History: None Reported General Exam General appearance: alert, in no apparent distress Head exam: Present: atraumatic, normocephalic, normal inspection Eye exam: Present: normal appearance, PERRL, EOMI. Absent: scleral icterus, conjunctival injection, periorbital swelling ENT exam: Present: normal exam, mucous membranes moist Neck exam: Present: normal inspection. Absent: tenderness, meningismus, lymphadenopathy Respiratory exam: Present: normal lung sounds bilaterally. Absent: respiratory distress, wheezes, rales, rhonchi, stridor Cardiovascular Exam: Present: regular rate, normal rhythm, normal heart sounds. Absent: systolic murmur, diastolic murmur, rubs, gallop, clicks GI/Abdominal exam: Present: soft, normal bowel sounds. Absent: distended, tenderness, guarding, rebound, rigid Extremities exam: Present: normal inspection, full ROM, normal capillary refill. Absent: tenderness, pedal edema, joint swelling, calf tenderness Back exam: Present: normal inspection Neurological exam: Present: alert, oriented X3, CN II-XII intact Psychiatric exam: Present: normal affect, normal mood Skin exam: Present: warm, dry, intact, normal color. Absent: rash Course Vital Signs 04/30/23 04/30/23 04/30/23 15:58 17:40 19:06 Temperature 98.3 F Pulse Rate 57 L 52 L 60 Respiratory 18 18 18 Rate Blood Pressure 145/79 140/80 110/63 O2 Sat by Pulse 100 99 99 Oximetry - Reevaluation(s) Reevaluation #1: 04/30/23 17:06 Medical records reviewed Reevaluation #2: 04/30/23 17:06 Patient's nausea difficult to control Reevaluation #4: 04/30/23 17:06 Was pt. sent in by a medical professional or institution? @ -no Did you speak to anyone other than the patient for history? @ -no Did you review nursing and triage notes? @ -agree Were old charts reviewed? @ -yes Differential Diagnosis? @ -prior EKG interpreted by me (3pts min.)? @ -yes X-rays interpreted by me (1pt min.)? @ -yes CT interpreted by me (1pt min.)? @ -no U/S interpreted by me (1pt. min.)? @ -no What testing was considered but not performed? (CT, X-rays, U/S, labs)? Why? @ -no What meds were considered but not given? Why? @ -no Did you discuss the management of the patient with other professionals? @ -no Did you reconcile home meds? @ -no Was smoking cessation discussed for >3mins.? @ -no Was critical care preformed (if so, how long)? @ -no Were there social determinants of health that impacted care today? How? (Homelessness, low income, unemployed, alcoholism, drug addiction, transporta tion, low edu. Level, literacy, decrease access to med. care, intermediate, rehab)? @ -no Was there de-escalation of care discussed even if they declined? (Discuss DNR or withdrawal of care, Hospice)? @ -no What co-morbidities impacted this encounter? (DM, HTN, Smoking, COPD, CAD, Cancer, CVA, Hep., AIDS, mental health diagnosis, sleep apnea, morbid obesity)? @ -none Was patient admitted / discharged? @ - Undiagnosed new problem with uncertain prognosis? @ -no Drug Therapy requiring intensive monitoring for toxicity (Heparin, Nitro, Insulin, Cardizem)? @ -no Were any procedures done? @ -no Diagnosis/symptom? @ - Acute, or Chronic, or Acute on Chronic? @ -acute Uncomplicated (without systemic symptoms) or Complicated (systemic symptoms)? @ -complicated Side effects of treatment? @ -no Exacerbation, Progression, or Severe Exacerbation] @ -no Poses a threat to life or bodily function? @ -yes Reevaluation #5: 04/30/23 17:06 Differential Abdominal Pain Women: Appendicitis, Cholecystitis, diverticulosis, ischemic bowel, pancreatitis, hepat itis, UTI, gastroenteritis, AAA, incarcerated hernia, bowel obstruction, constipation, inflammatory bowel, hepatitis, peptic ulcer disease, splenic infarction, perforated viscus, vulvitis, ovarian torsion, PID, kidney stone, placenta abruption, this is not meant to be an all-inclusive list Medical Decision Making - Lab Data Result diagrams: 04/30/23 16:42 04/30/23 16:42 Lab Results 04/30/23 04/30/23 04/30/23 Range/Units 16:42 16:42 16:42 WBC 9.3 (3.8-10.6) k/uL RBC 4.21 (3.80-5.40) m/uL Hgb 14.2 (11.4-16.0) gm/dL Hct 41.6 (34.0-46.0) % MCV 98.9 (80.0-100.0) fL MCH 33.9 (25.0-35.0) pg MCHC 34.2 (31.0-37.0) g/dL RDW 12.6 (11.5-15.5) % Plt Count 188 (150-450) k/uL MPV 9.4 Neutrophils % 85 % Lymphocytes % 9 % Monocytes % 4 % Eosinophils % 1 % Basophils % 0 % Neutrophils # 7.9 H (1.3-7.7) k/uL Lymphocytes # 0.9 L (1.0-4.8) k/uL Monocytes # 0.4 (0-1.0) k/uL Eosinophils # 0.1 (0-0.7) k/uL Basophils # 0.0 (0-0.2) k/uL Sodium 140 (137-145) mmol/L Potassium 3.1 L (3.5-5.1) mmol/L Chloride 108 H (98-107) mmol/L Carbon Dioxide 24 (22-30) mmol/L Anion Gap 8 mmol/L BUN 6 L (7-17) mg/dL Creatinine 0.64 (0.52-1.04) mg/dL Est GFR (CKD-EPI)AfAm >90 (>60 ml/min/1.73 sqM) Est GFR (CKD-EPI)NonAf >90 (>60 ml/min/1.73 sqM) Glucose 107 H (74-99) mg/dL Plasma Lactic Acid Malcolm 2.9 H* (0.7-2.0) mmol/L Calcium 8.6 (8.4-10.2) mg/dL Phosphorus 2.1 L (2.5-4.5) mg/dL Magnesium 1.7 (1.6-2.3) mg/dL Total Bilirubin 0.7 (0.2-1.3) mg/dL AST 36 (14-36) U/L ALT 32 (4-34) U/L Alkaline Phosphatase 96 (38-126) U/L Total Protein 5.9 L (6.3-8.2) g/dL Albumin 3.4 L (3.5-5.0) g/dL Amylase 86 (30-110) U/L Lipase 287 (23-300) U/L Disposition Clinical Impression: Abdominal pain, Intractable nausea and vomiting Disposition: ADMITTED IP TO THIS [facility] Condition: Fair Is patient prescribed a controlled substance at d/c from ED?: No Referrals: Nixon Nguyen MD [Primary Care Provider] - 1-2 days Time of Disposition: 19:10
[2023-04-30] MEDS ORDERED: LORazepam 2 MG/ML INJ IV STA (17:02)
[2023-04-30] MEDS ORDERED: PROCHLORPERAZINE INJ 10 MG/2 ML VIAL IVP STA (17:02)
[2023-04-30 17:10] LABS: Basophils % (A) 0 %; Eosinophils # (A) 0.1 k/uL (0-0.7); Eosinophils % (A) 1 %; HCT 41.6 % (34.0-46.0); HGB 14.2 gm/dL (11.4-16.0); Lymphocytes # (A) 0.9 k/uL (1.0-4.8); Lymphocytes % (A) 9 %; MCH 33.9 pg (25.0-35.0); MCHC 34.2 g/dL (31.0-37.0); MCV 98.9 fL (80.0-100.0); Mean Platelet Volume 9.4; Monocytes # (A) 0.4 k/uL (0-1.0); Monocytes % (A) 4 %; Neutrophils # (A) 7.9 k/uL (1.3-7.7); Neutrophils % (A) 85 %; Platelet Count 188 k/uL (150-450); RBC 4.21 m/uL (3.80-5.40); RDW 12.6 % (11.5-15.5); WBC 9.3 k/uL (3.8-10.6)
[2023-04-30] MEDS ORDERED: HYDROmorphone 1 MG/ML 1 ML SYRINGE IVP STA (17:20)
[2023-04-30 17:36] LABS: ALT 32 U/L (4-34); AST 36 U/L (14-36); African American GFR (CKD) >90 (>60 ml/min/1.73 sqM); Albumin 3.4 g/dL (3.5-5.0); Alkaline Phosphatase 96 U/L (38-126); Amylase 86 U/L (30-110); Anion Gap 8 mmol/L; Blood Urea Nitrogen 6 mg/dL (7-17); Calcium 8.6 mg/dL (8.4-10.2); Carbon Dioxide 24 mmol/L (22-30); Chloride 108 mmol/L (98-107); Glucose 107 mg/dL (74-99); Lipase 287 U/L (23-300); Magnesium 1.7 mg/dL (1.6-2.3); Non-African American GFR(CKD) >90 (>60 ml/min/1.73 sqM); Phosphorus 2.1 mg/dL (2.5-4.5); Potassium 3.1 mmol/L (3.5-5.1); Sodium 140 mmol/L (137-145); Total Bilirubin 0.7 mg/dL (0.2-1.3); Total Protein 5.9 g/dL (6.3-8.2)
[2023-04-30] MEDS ORDERED: POTASSIUM CHLORIDE 20 MEQ in WATER FOR INJECTION 1 100ML.BAG IVPB STA (18:44)
[2023-04-30] MEDS ORDERED: NALOXONE 0.4 MG/ML 1 ML VIAL IV PRN (19:12)
[2023-04-30 19:49] LABS: Appearance,Urine Clear (Clear); Bilirubin,Urine Negative (Negative); Blood,Urine Negative (Negative); Color,Urine Colorless; Glucose,Urine (UA) Negative (Negative); Ketones,Urine Trace (Negative); Leukocyte Esterase,Urine Negative (Negative); Nitrite,Urine Negative (Negative); Protein,Urine Negative (Negative); Specific Gravity,Urine 1.007 (1.001-1.035); Urobilinogen,Urine <2.0 mg/dL (<2.0)
[2023-04-30] MEDS: SODIUM CHLORIDE 0.9% 1,000 ML IV SCH (20:20)
[2023-04-30] MEDS: HYDROmorphone 1 MG/ML 1 ML SYRINGE IVP PRN (21:14)
[2023-04-30] MEDS ORDERED: HYDROcodone/APAP 5-325MG 1 EACH TAB PO PRN (21:21)
[2023-04-30] MEDS: cloNIDine HCL 0.2 MG TAB PO SCH (23:04)
[2023-05-01] MEDS: HYDROmorphone 1 MG/ML 1 ML SYRINGE IVP PRN ×5 (00:55→21:15)
[2023-05-01] MEDS: SODIUM CHLORIDE 0.9% 1,000 ML IV SCH ×3 (04:23→17:27)
[2023-05-01] MEDS: NON FORMULARY DRUG (Dextroamphetamine/Amphetamine [Adderall] 20 MG Tablet) PO SCH ×2 (07:24→21:21)
--- NOTE | 2023-05-01 08:37 | P.HPIM ---
History of Present Illness H&P Date: 04/30/23 Chief Complaint: Abdominal pain/nausea/vomiting 47-year-old female, history of hypertension, anxiety and depression, presents to the ER today. Patient presents today for evaluation regards to persistent abdominal pain with nausea vomiting. Patient is scheduled for laparoscopic cholecystectomy on 05/03/[address] Ingram. Patient underwent EGD for workup of abdominal pain which showed mild antral gastritis; HIDA scan was done during admission which showed nonvisualization of the gallbladder at 2 hours compatible with cholecystitis; patient's abdominal pain resolved at that time and she was discharged home and scheduled for outpatient cholecystectomy. Patient presented to ED with persistent symptoms of severe nausea vomiting abdominal pain. November completed in ED reveals a WBC of 9.3, hemoglobin of 14.2 and platelet count of 188, sodium 140, potassium 3.1, BUN/creatinine of 6/0.64, lactic acid is elevated at 2.9, phosphorus of 2.1 Review of Systems REVIEW OF SYSTEMS: CONSTITUTIONAL: No fever, no malaise, no fatigue. HEENT: No recent visual problems or hearing problems. Denied any sore throat. CARDIOVASCULAR: No chest pain, orthopnea, PND, no palpitations, no syncope. PULMONARY: No shortness of breath, no cough, no hemoptysis. GASTROINTESTINAL: No diarrhea, no nausea, no vomiting, no abdominal pain. NEUROLOGICAL: No headaches, no weakness, no numbness. HEMATOLOGICAL: Denies any bleeding or petechiae. GENITOURINARY: Denies any burning micturition, frequency, or urgency. MUSCULOSKELETAL/RHEUMATOLOGICAL: Denies any joint pain, swelling, or any muscle pain. ENDOCRINE: Denies any polyuria or polydipsia. The rest of the 14-point review of systems is negative. Past Medical History Past Medical History: No Reported History Additional Past Medical History / Comment(s): KIDNEY STONES History of Any Multi-Drug Resistant Organisms: None Reported Past Surgical History: Section, Hysterectomy Additional Past Surgical History / Comment(s): breast augmentation, Past Anesthesia/Blood Transfusion Reactions: No Reported Reaction Past Psychological History: Anxiety, Depression Smoking Status: Current every day smoker Past Alcohol Use History: Daily Past Drug Use History: None Reported Medications and Allergies Home Medications Medication Instructions Recorded Confirmed Type Dextroamphetamine/Amphetamine 20 mg PO BID 04/27/23 04/30/23 History [Adderall] cloNIDine HCL [Catapres] 0.6 mg PO HS 04/27/23 04/30/23 History Amoxic-Pot Clav 875-125Mg 1 tab PO Q12HR 7 Days #14 tab 04/30/23 04/30/23 Rx [Augmentin 875-125] HYDROcodone/APAP 5-325MG [[place] 1 tab PO Q6HR PRN 3 Days #12 tab 04/30/23 04/30/23 Rx 5-325] Allergies Allergy/AdvReac Type Severity Reaction Status Date / Time Sulfa (Sulfonamide Allergy Severe Rash/Hives Verified 04/30/23 19:31 Antibiotics) Physical Exam Vitals: Vital Signs Temp Pulse Pulse Resp BP BP Pulse Ox 04/30/23 20:57 98.3 F 67 12 117/68 98 04/30/23 20:37 65 18 114/85 100 04/30/23 19:06 60 18 110/63 99 04/30/23 17:40 52 L 18 140/80 99 04/30/23 15:58 98.3 F 57 L 18 145/79 100 Intake and Output 04/30/23 04/30/23 04/30/23 06:59 14:59 22:59 Other: Weight 50.802 kg PHYSICAL EXAMINATION: GENERAL: The patient is alert and oriented x3, not in any acute distress. Well developed, well nourished. HEENT: Pupils are round and equally reacting to light. EOMI. No scleral icterus. No conjunctival pallor. Normocephalic, atraumatic. No pharyngeal erythema. No thyromegaly. CARDIOVASCULAR: S1 and S2 present. No murmurs, rubs, or gallops. PULMONARY: Chest is clear to auscultation, no wheezing or crackles. ABDOMEN: Soft, nontender, nondistended, normoactive bowel sounds. No palpable organomegaly. MUSCULOSKELETAL: No joint swelling or deformity. EXTREMITIES: No cyanosis, clubbing, or pedal edema. NEUROLOGICAL: Gross neurological examination did not reveal any focal deficits. SKIN: No rashes. Results CBC & Chem 7: 04/30/23 16:42 04/30/23 16:42 Labs: Abnormal Lab Results - Last 24 Hours (Table) 04/30/23 04/30/23 04/30/23 Range/Units 16:42 16:42 16:42 Neutrophils # 7.9 H (1.3-7.7) k/uL Lymphocytes # 0.9 L (1.0-4.8) k/uL Potassium 3.1 L (3.5-5.1) mmol/L Chloride 108 H (98-107) mmol/L BUN 6 L (7-17) mg/dL Glucose 107 H (74-99) mg/dL Plasma Lactic Acid Malcolm (0.7-2.0) mmol/L Phosphorus 2.1 L (2.5-4.5) mg/dL Total Protein 5.9 L (6.3-8.2) g/dL Albumin 3.4 L (3.5-5.0) g/dL Urine Ketones Trace H (Negative) 04/30/23 Range/Units 16:42 Neutrophils # (1.3-7.7) k/uL Lymphocytes # (1.0-4.8) k/uL Potassium (3.5-5.1) mmol/L Chloride (98-107) mmol/L BUN (7-17) mg/dL Glucose (74-99) mg/dL Plasma Lactic Acid Malcolm 2.9 H* (0.7-2.0) mmol/L Phosphorus (2.5-4.5) mg/dL Total Protein (6.3-8.2) g/dL Albumin (3.5-5.0) g/dL Urine Ketones (Negative) Assessment and Plan Assessment: 1. Intractable abdominal pain; acute cholecystitis - Patient is admitted for further surgical management - Patient will be kept nothing by mouth; pain controlled with IV Dilaudid; IV fluids in form of normal saline - Consult surgery for further treatment 2. Lactic acidosis; likely related to acute cholecystitis - Patient did receive a fluid bolus in ED with repeat lactic acid level of 1.1 - Continue with IV fluid hydration; continue to monitor lactic acid levels periodically 3. Hypokalemia; supplemented in ED with 20 mEq of IV potassium; monitor electrolytes closely and supplement as needed 4. Anxiety/depression; currently not on any medications 5. Hypertension; clonidine 0.6 mg by mouth daily at bedtime 6. ADHD; Adderall 20 mg twice a day DVT prophylaxis; SCDs CODE STATUS; full code.
[2023-05-01 09:16] LABS: Basophils # (A) 0.02 X 10*3/uL (0.00-0.10); Basophils % (A) 0.3 %; Eosinophils # (A) 0.15 X 10*3/uL (0.04-0.35); Eosinophils % (A) 2.2 %; HCT 35.5 % (37.2-46.3); HGB 12.2 d/dL (12.0-15.0); Lymphocytes # (A) 1.84 X 10*3/uL (0.90-5.00); Lymphocytes % (A) 26.9 %; MCH 33.2 pg (27.0-32.0); MCHC 34.4 d/dL (32.0-37.0); MCV 96.5 FL (80.0-97.0); Mean Platelet Volume 11.6 FL (9.5-12.2); Monocytes # (A) 0.56 X 10*3/uL (0.20-1.00); Monocytes % (A) 8.2 %; NRBC Per 100 WBC 0 X 10*3/uL (0.00-0.01); Neutrophils # (A) 4.25 X 10*3/uL (1.80-7.70); Neutrophils % (A) 62.1 %; Platelet Count 173 X 10*3/uL (140-440); RBC 3.68 X 10*6/uL (4.10-5.20); RDW 12.7 % (11.5-14.5); WBC 6.84 X 10*3/uL (4.50-10.00)
[2023-05-01 09:19] LABS: ALT 24 U/L (8-44); AST 18 U/L (13-35); Albumin/Globulin Ratio 1.76 Ratio (1.60-3.17); Alkaline Phosphatase 68 U/L (41-126); BUN/Creat Ratio 7.83 Ratio (12.00-20.00); Blood Urea Nitrogen 4.7 mg/dL (9.0-27.0); Calcium 7.9 mg/dL (8.7-10.3); Carbon Dioxide 21.1 mmol/L (21.6-31.8); Chloride 109 mmol/L (96-109); Globulin 1.7 d/dL (1.6-3.3); Glucose 78 mg/dL (70-110); Magnesium 1.6 mg/dL (1.5-2.4); Phosphorus 2.8 mg/dL (2.4-5.1); Potassium 2.9 mmol/L (3.5-5.5); Sodium 142 mmol/L (135-145); Total Bilirubin 0.3 mg/dL (0.3-1.2); Total Protein 4.7 d/dL (6.2-8.2)
[2023-05-01] MEDS ORDERED: Potassium Replacement Protocol 1 EACH MISC MISCELLANE PRN (10:45)
[2023-05-01] MEDS: POTASSIUM CHLORIDE ER 20 MEQ TAB.ER PO SCH ×2 (11:31→13:43)
[2023-05-01] MEDS: SIMETHICONE 80 MG CHEWABLE PO SCH ×3 (12:09→21:14)
[2023-05-01] MEDS: cloNIDine HCL 0.2 MG TAB PO SCH (21:14)
[2023-05-02] MEDS: ONDANSETRON 4 MG/2 ML VIAL IVP PRN ×2 (01:46→15:30)
[2023-05-02] MEDS: SODIUM CHLORIDE 0.9% 1,000 ML IV SCH ×3 (04:07→16:42)
[2023-05-02] MEDS: NON FORMULARY DRUG (Dextroamphetamine/Amphetamine [Adderall] 20 MG Tablet) PO SCH ×2 (07:08→20:04)
[2023-05-02] MEDS: SIMETHICONE 80 MG CHEWABLE PO SCH ×4 (07:55→20:12)
--- NOTE | 2023-05-02 08:12 | P.PN ---
Subjective Progress Note Date: 05/01/23 Principal diagnosis: Acute cholecystitis Elevated liver enzyme Intractable abdominal pain 47-year-old female, history of hypertension, anxiety and depression, presents to the ER today. Patient presents today for evaluation regards to persistent abdominal pain with nausea vomiting. Patient is scheduled for laparoscopic cholecystectomy on 05/03/[address] Ingram. Patient underwent EGD for workup of abdominal pain which showed mild antral gastritis; HIDA scan was done during admission which showed nonvisualization of the gallbladder at 2 hours compatible with cholecystitis; patient's abdominal pain resolved at that time and she was discha rged home and scheduled for outpatient cholecystectomy. Patient presented to ED with persistent symptoms of severe nausea vomiting abdominal pain. November completed in ED reveals a WBC of 9.3, hemoglobin of 14.2 and platelet count of 188, sodium 140, potassium 3.1, BUN/creatinine of 6/0.64, lactic acid is elevated at 2.9, phosphorus of 2.1 Objective - Vital Signs Vital signs: Vital Signs Temp 99.0 F 05/01/23 14:39 Pulse 81 05/01/23 14:39 Resp 16 05/01/23 14:39 BP 135/77 05/01/23 14:39 Pulse Ox 97 05/01/23 14:39 FiO2 Intake & Output 04/30/23 05/01/23 05/01/23 18:59 06:59 18:59 Weight 50.802 kg 50.802 kg Other: Voiding Method Toilet Toilet # Voids 1 3 - Exam PHYSICAL EXAMINATION: GENERAL: The patient is alert and oriented x3, not in any acute distress. Well developed, well nourished. HEENT: Pupils are round and equally reacting to light. EOMI. No scleral icterus. No conjunctival pallor. Normocephalic, atraumatic. No pharyngeal erythema. No thyromegaly. CARDIOVASCULAR: S1 and S2 present. No murmurs, rubs, or gallops. PULMONARY: Chest is clear to auscultation, no wheezing or crackles. ABDOMEN: Soft, marked diffuse tenderness more so in epigastric and right upper quadrant., nondistended, normoactive bowel sounds. No palpable organomegaly. MUSCULOSKELETAL: No joint swelling or deformity. EXTREMITIES: No cyanosis, clubbing, or pedal edema. NEUROLOGICAL: Gross neurological examination did not reveal any focal deficits. SKIN: No rashes. - Labs CBC & Chem 7: 05/01/23 05:37 05/01/23 05:37 Labs: Abnormal Lab Results - Last 24 Hours (Table) 04/30/23 04/30/23 04/30/23 Range/Units 16:42 16:42 16:42 RBC (4.10-5.20) X 10*6/uL Hct (37.2-46.3) % MCH (27.0-32.0) pg Neutrophils # 7.9 H (1.3-7.7) k/uL Lymphocytes # 0.9 L (1.0-4.8) k/uL Potassium 3.1 L (3.5-5.1) mmol/L Chloride 108 H (98-107) mmol/L Carbon Dioxide (21.6-31.8) mmol/L BUN 6 L (7-17) mg/dL BUN/Creatinine Ratio (12.00-20.00) Ratio Glucose 107 H (74-99) mg/dL Plasma Lactic Acid Malcolm (0.7-2.0) mmol/L Calcium (8.7-10.3) mg/dL Phosphorus 2.1 L (2.5-4.5) mg/dL Total Protein 5.9 L (6.3-8.2) g/dL Albumin 3.4 L (3.5-5.0) g/dL Urine Ketones Trace H (Negative) 04/30/23 05/01/23 05/01/23 Range/Units 16:42 05:37 05:37 RBC 3.68 L (4.10-5.20) X 10*6/uL Hct 35.5 L (37.2-46.3) % MCH 33.2 H (27.0-32.0) pg Neutrophils # (1.3-7.7) k/uL Lymphocytes # (1.0-4.8) k/uL Potassium 2.9 L (3.5-5.1) mmol/L Chloride (98-107) mmol/L Carbon Dioxide 21.1 L (21.6-31.8) mmol/L BUN 4.7 L (7-17) mg/dL BUN/Creatinine Ratio 7.83 L (12.00-20.00) Ratio Glucose (74-99) mg/dL Plasma Lactic Acid Malcolm 2.9 H* (0.7-2.0) mmol/L Calcium 7.9 L (8.7-10.3) mg/dL Phosphorus (2.5-4.5) mg/dL Total Protein 4.7 L (6.3-8.2) g/dL Albumin 3.0 L (3.5-5.0) g/dL Urine Ketones (Negative) Assessment and Plan Assessment: 1. Intractable abdominal pain; acute cholecystitis - Patient is admitted for further surgical management - Patient will be kept nothing by mouth; pain controlled with IV Dilaudid; IV fluids in form of normal saline - Consult surgery for further treatment 2. Lactic acidosis; likely related to acute cholecystitis - Patient did receive a fluid bolus in ED with repeat lactic acid level of 1.1 - Continue with IV fluid hydration; continue to monitor lactic acid levels perio dically 3. Hypokalemia; supplemented in ED with 20 mEq of IV potassium; monitor electrolytes closely and supplement as needed 4. Anxiety/depression; currently not on any medications 5. Hypertension; clonidine 0.6 mg by mouth daily at bedtime 6. ADHD; Adderall 20 mg twice a day DVT prophylaxis; SCDs CODE STATUS; full code.
[2023-05-02] MEDS: HYDROmorphone 1 MG/ML 1 ML SYRINGE IVP PRN ×5 (08:31→23:44)
--- NOTE | 2023-05-02 10:00 | P.GSCN ---
History of Present Illness Consult date: 05/02/23 Reason for Consult: Chronic cholecystitis History of present illness: This a 47-year-old female who was recently admitted for nausea vomiting a bdominal pain. Patient's found have evidence of chronic cholecystitis. Patient scheduled for laparoscopically cholecystectomy Wednesday. Patient was discharged home on Wednesday but returned to the hospital on Wednesday. Patient states that she has complaints of nausea and pain. Currently she feels well. Past Medical History Past Medical History: No Reported History Additional Past Medical History / Comment(s): KIDNEY STONES History of Any Multi-Drug Resistant Organisms: None Reported Past Surgical History: Section, Hysterectomy Additional Past Surgical History / Comment(s): breast augmentation, Past Anesthesia/Blood Transfusion Reactions: No Reported Reaction Past Psychological History: Anxiety, Depression Smoking Status: Current every day smoker Past Alcohol Use History: Daily Past Drug Use History: None Reported Medications and Allergies Home Medications Medication Instructions Recorded Confirmed Type Dextroamphetamine/Amphetamine 20 mg PO BID 04/27/23 04/30/23 History [Adderall] cloNIDine HCL [Catapres] 0.6 mg PO HS 04/27/23 04/30/23 History Amoxic-Pot Clav 875-125Mg 1 tab PO Q12HR 7 Days #14 tab 04/30/23 04/30/23 Rx [Augmentin 875-125] HYDROcodone/APAP 5-325MG [[place] 1 tab PO Q6HR PRN 3 Days #12 tab 04/30/23 04/30/23 Rx 5-325] Allergies Allergy/AdvReac Type Severity Reaction Status Date / Time Sulfa (Sulfonamide Allergy Severe Rash/Hives Verified 04/30/23 19:31 Antibiotics) Surgical - Exam Vital Signs Temp Pulse Resp BP Pulse Ox 98.3 F 57 L 18 145/79 100 04/30/23 15:58 04/30/23 15:58 04/30/23 15:58 04/30/23 15:58 04/30/23 15:58 - General well developed, well nourished, no distress - Eyes PERRL - ENT normal pinna - Neck no masses - Respiratory normal expansion - Cardiovascular Rhythm: regular - Abdomen Abdomen: soft, non tender Results - Labs 05/01/23 05:37 05/01/23 05:37 Assessment and Plan Assessment: Chronically status. Patient scheduled for laparoscopically cholecystectomy tomorrow.
[2023-05-02 13:43] LABS: BUN/Creat Ratio <5.83 Ratio (12.00-20.00); Blood Urea Nitrogen <3.5 mg/dL (9.0-27.0); Calcium 8.7 mg/dL (8.7-10.3); Chloride 108 mmol/L (96-109); Glucose 94 mg/dL (70-110); Potassium 3.7 mmol/L (3.5-5.5); Sodium 141 mmol/L (135-145)
[2023-05-02 14:04] LABS: Basophils # (A) 0.03 X 10*3/uL (0.00-0.10); Basophils % (A) 0.6 %; Eosinophils # (A) 0.17 X 10*3/uL (0.04-0.35); Eosinophils % (A) 3.2 %; HCT 35.5 % (37.2-46.3); HGB 12.2 d/dL (12.0-15.0); Lymphocytes # (A) 1.06 X 10*3/uL (0.90-5.00); MCH 33.2 pg (27.0-32.0); MCHC 34.4 d/dL (32.0-37.0); MCV 96.7 FL (80.0-97.0); Mean Platelet Volume 11.9 FL (9.5-12.2); Monocytes # (A) 0.49 X 10*3/uL (0.20-1.00); Monocytes % (A) 9.2 %; NRBC Per 100 WBC 0 X 10*3/uL (0.00-0.01); Neutrophils # (A) 3.54 X 10*3/uL (1.80-7.70); Neutrophils % (A) 66.8 %; Platelet Count 180 X 10*3/uL (140-440); RBC 3.67 X 10*6/uL (4.10-5.20); RDW 12.9 % (11.5-14.5)
--- NOTE | 2023-05-02 19:08 | P.PN ---
Subjective Progress Note Date: 05/02/23 Principal diagnosis: Acute cholecystitis Elevated liver enzyme Intractable abdominal pain 47-year-old female, history of hypertension, anxiety and depression, presents to the ER today. Patient presents today for evaluation regards to persistent abdominal pain with nausea vomiting. Patient is scheduled for laparoscopic cholecystectomy on 05/03/[address] Ingram. Patient underwent EGD for workup of abdominal pain which showed mild antral gastritis; HIDA scan was done during admission which showed nonvisualization of the gallbladder at 2 hours compatible with cholecystitis; patient's abdominal pain resolved at that time and she was discha rged home and scheduled for outpatient cholecystectomy. Patient presented to ED with persistent symptoms of severe nausea vomiting abdominal pain. November completed in ED reveals a WBC of 9.3, hemoglobin of 14.2 and platelet count of 188, sodium 140, potassium 3.1, BUN/creatinine of 6/0.64, lactic acid is elevated at 2.9, phosphorus of 2.1 Patient continues to report nausea and vomiting related to chronic cholecystitis; patient has been evaluated by surgery and is scheduled for laparoscopic cholecystectomy tomorrow morning Labs are reviewed namely white blood count of 5.3, hemoglobin of 12.2 and platelet count of 180, sodium 141, potassium 3.7 improved from 2.9 yesterday - Patient remains on IV fluids - We will continue with current management Objective - Vital Signs Vital signs: Vital Signs Temp 98.1 F 05/02/23 07:00 Pulse 64 05/02/23 07:00 Resp 15 05/02/23 07:00 BP 123/71 05/02/23 07:00 Pulse Ox 98 05/02/23 07:00 FiO2 Intake & Output 05/01/23 05/02/23 05/02/23 18:59 06:59 18:59 Intake Total 118 Balance 118 Intake: Oral 118 Other: Voiding Method Toilet Toilet # Voids 3 2 - Exam PHYSICAL EXAMINATION: GENERAL: The patient is alert and oriented x3, not in any acute distress. Well d eveloped, well nourished. HEENT: Pupils are round and equally reacting to light. EOMI. No scleral icterus. No conjunctival pallor. Normocephalic, atraumatic. No pharyngeal erythema. No thyromegaly. CARDIOVASCULAR: S1 and S2 present. No murmurs, rubs, or gallops. PULMONARY: Chest is clear to auscultation, no wheezing or crackles. ABDOMEN: Soft, marked diffuse tenderness more so in epigastric and right upper quadrant., nondistended, normoactive bowel sounds. No palpable organomegaly. MUSCULOSKELETAL: No joint swelling or deformity. EXTREMITIES: No cyanosis, clubbing, or pedal edema. NEUROLOGICAL: Gross neurological examination did not reveal any focal deficits. SKIN: No rashes. - Labs CBC & Chem 7: 05/02/23 07:03 05/02/23 07:03 Labs: Abnormal Lab Results - Last 24 Hours (Table) 05/01/23 05/01/23 Range/Units 05:37 05:37 RBC 3.68 L (4.10-5.20) X 10*6/uL Hct 35.5 L (37.2-46.3) % MCH 33.2 H (27.0-32.0) pg Potassium 2.9 L (3.5-5.5) mmol/L Carbon Dioxide 21.1 L (21.6-31.8) mmol/L BUN 4.7 L (9.0-27.0) mg/dL BUN/Creatinine Ratio 7.83 L (12.00-20.00) Ratio Calcium 7.9 L (8.7-10.3) mg/dL Total Protein 4.7 L (6.2-8.2) d/dL Albumin 3.0 L (3.8-4.9) d/dL Assessment and Plan Assessment: 1. Intractable abdominal pain; acute cholecystitis - Patient is admitted for further surgical management - Patient will be kept nothing by mouth; pain controlled with IV Dilaudid; IV fluids in form of normal saline - Consult surgery for further treatment 2. Lactic acidosis; likely related to acute cholecystitis - Patient did receive a fluid bolus in ED with repeat lactic acid level of 1.1 - Continue with IV fluid hydration; continue to monitor lactic acid levels periodically 3. Hypokalemia; supplemented in ED with 20 mEq of IV potassium; monitor electrolytes closely and supplement as needed 4. Anxiety/depression; currently not on any medications 5. Hypertension; clonidine 0.6 mg by mouth daily at bedtime 6. ADHD; Adderall 20 mg twice a day DVT prophylaxis; SCDs CODE STATUS; full code.
[2023-05-02] MEDS: cloNIDine HCL 0.2 MG TAB PO SCH (20:13)
[2023-05-03] MEDS: SODIUM CHLORIDE 0.9% 1,000 ML IV SCH ×4 (01:22→23:57)
[2023-05-03] MEDS: SIMETHICONE 80 MG CHEWABLE PO SCH ×4 (09:41→21:20)
[2023-05-03] MEDS: NON FORMULARY DRUG (Dextroamphetamine/Amphetamine [Adderall] 20 MG Tablet) PO SCH ×2 (09:42→20:22)
[2023-05-03] MEDS ORDERED: SCOPOLAMINE 1 MG/72 HR PATCH TRANSDERM STA (10:20)
--- NOTE | 2023-05-03 10:49 | P.PN ---
Subjective Progress Note Date: 05/03/23 NPO, scheduled for laparoscopic cholecystectomy today. Denies nausea or vomiting, reports abdominal pain. Last bowel movement on admission-loose. Denies chest pain, palpitations or shortness of breath. Afebrile, T-max 99.3. Objective - Vital Signs Vital signs: Vital Signs Temp 98.4 F 05/03/23 06:40 Pulse 48 L 05/03/23 06:40 Resp 15 05/03/23 06:40 BP 134/71 05/03/23 06:40 Pulse Ox 95 05/03/23 06:40 FiO2 Intake & Output 05/02/23 05/03/23 05/03/23 18:59 06:59 18:59 Intake Total 118 Balance 118 Intake: Oral 118 Other: Voiding Method Toilet Toilet # Voids 3 1 - Exam Gen: well nourished, well developed female in NAD HEENT: NC/AT, mmm Neck: supple, no JVD CV: RRR, no murmur Lungs: normal effort, clear throughout Abd: soft, epigastric and RUQ tenderness. BS+ Neuro: AAOx3, no focal deficit skin: warm and dry - Labs CBC & Chem 7: 05/02/23 07:03 05/02/23 07:03 Labs: Abnormal Lab Results - Last 24 Hours (Table) 05/02/23 05/02/23 Range/Units 07:03 07:03 RBC 3.67 L (4.10-5.20) X 10*6/uL Hct 35.5 L (37.2-46.3) % MCH 33.2 H (27.0-32.0) pg Carbon Dioxide 21.0 L (21.6-31.8) mmol/L BUN <3.5 L (9.0-27.0) mg/dL BUN/Creatinine Ratio <5.83 L (12.00-20.00) Ratio Assessment and Plan Assessment: Acute cholecystitis Mild antral gastritis Plan: Continue on current medication regime ,monitoring and symptomatic treatment. Pain management as per general surgery. Laparoscopic cholecystectomy pending. The impression and plan of care has been dictated as directed. : I performed a history and examination of this patient, discussed the same with the dictator. I agree with the dictator's note ,documented as a scribe. Any additional findings or plans will be noted.
[2023-05-03] MEDS ORDERED: LACTATED RINGERS 1,000 ML IV ONE (10:59)
[2023-05-03] MEDS ORDERED: BUPIVACAINE (PF) 0.25% 30 ML VIAL SQ ONE ×2 (11:12→11:36)
[2023-05-03] MEDS ORDERED: SUCCINYLCHOLINE CHLORIDE 200 MG/10 ML VIAL IV ONE (11:20)
[2023-05-03] MEDS ORDERED: MIDAZOLAM 2 MG/2 ML VIAL ONE (11:20)
[2023-05-03] MEDS ORDERED: LIDOCAINE 2% INJ 20 MG/ML (2 ML VIAL) ONE (11:20)
[2023-05-03] MEDS ORDERED: KETOROLAC 15 MG/ML 1 ML VIAL ONE (11:20)
[2023-05-03] MEDS ORDERED: LIDOCAINE 4% LTA KIT (4 ML) TOPICAL ONE (11:20)
[2023-05-03] MEDS ORDERED: ROCURONIUM 10 MG/ML (5 ML VIAL) IV ONE (11:20)
[2023-05-03] MEDS ORDERED: fentaNYL (PF) 50 MCG/ML 2 ML AMP ONE (11:20)
[2023-05-03] MEDS ORDERED: PROPOFOL 10 MG/ML 20 ML VIAL IV ONE (11:20)
[2023-05-03] MEDS ORDERED: GLYCOPYRROLATE 0.2 MG/ML 2 ML VIAL ONE (11:20)
[2023-05-03] MEDS ORDERED: NEOSTIGMINE 1 MG/ML 10 ML VIAL ONE (11:20)
[2023-05-03] MEDS ORDERED: DEXAMETHASONE SOD PHOSPHATE 4 MG/ML 1 ML VIAL IVP ONE (11:21)
[2023-05-03] MEDS ORDERED: HEPARIN SODIUM,PORCINE 5,000 UNIT/ML 1 ML VIAL SQ ONE (11:21)
[2023-05-03] MEDS ORDERED: ONDANSETRON 4 MG/2 ML VIAL IVP ONE (11:21)
[2023-05-03] MEDS ORDERED: SODIUM CHLORIDE 0.9% 50 ML with ceFAZolin 2,000 MG IV ONE ×2 (11:22)
--- NOTE | 2023-05-03 12:14 | P.PN ---
Subjective Progress Note Date: 05/03/23 CHIEF COMPLAINT: Chronic cholecystitis HISTORY OF PRESENT ILLNESS: Patient continues to have right upper quadrant abdominal pain. Scheduled for laparoscopic cholecystectomy today. Afebrile. WBC 5.3 HgB 12.2 creatinine 0.6 potassium 3.7 sodium 141 PHYSICAL EXAM: VITAL SIGNS: Reviewed. GENERAL: Well-developed in no acute distress. ABDOMEN: Soft. Nondistended. NEUROLOGIC: Alert and oriented. Cranial nerves II through XII grossly intact. ASSESSMENT: 1. Chronic cholecystitis PLAN: -Scheduled for laparoscopic cholecystectomy today -Continue supportive care Physician Certified Medical Aide note has been reviewed by physician. Signing provider agrees with the documented findings, assessment, and plan of care. Objective - Vital Signs Vital signs: Vital Signs Temp 97.8 F 05/03/23 11:05 Pulse 42 L 05/03/23 11:05 Resp 16 05/03/23 11:05 BP 150/76 05/03/23 11:05 Pulse Ox 98 05/03/23 11:05 FiO2 Intake & Output 05/02/23 05/03/23 05/03/23 18:59 06:59 18:59 Intake Total 118 550 Output Total 5 Balance 118 545 Intake: IV 550 Oral 118 Output: Estimated Blood Loss 5 Other: Voiding Method Toilet Toilet # Voids 3 1 - Labs CBC & Chem 7: 05/02/23 07:03 05/02/23 07:03 Labs: Abnormal Lab Results - Last 24 Hours (Table) 05/02/23 05/02/23 Range/Units 07:03 07:03 RBC 3.67 L (4.10-5.20) X 10*6/uL Hct 35.5 L (37.2-46.3) % MCH 33.2 H (27.0-32.0) pg Carbon Dioxide 21.0 L (21.6-31.8) mmol/L BUN <3.5 L (9.0-27.0) mg/dL BUN/Creatinine Ratio <5.83 L (12.00-20.00) Ratio
[2023-05-03] MEDS: ONDANSETRON 4 MG/2 ML VIAL IVP PRN (12:19)
[2023-05-03] MEDS ORDERED: HYDROmorphone 0.5 MG/0.5 ML SYRINGE IVP ONE ×2 (12:34→13:52)
[2023-05-03] MEDS ORDERED: GLYCOPYRROLATE 0.2 MG/ML 2 ML VIAL IVP ONE (13:05)
[2023-05-03] MEDS ORDERED: hydrALAZINE HCL 20 MG/ML 1 ML VIAL IV ONE (13:14)
[2023-05-03] MEDS: PANTOPRAZOLE 40 MG/10 ML VIAL IVP SCH (14:55)
[2023-05-03] MEDS: HYDROmorphone 1 MG/ML 1 ML SYRINGE IVP PRN ×3 (15:05→20:22)
[2023-05-03] MEDS: KETOROLAC 15 MG/ML 1 ML VIAL IVP PRN (21:20)
[2023-05-03] MEDS: cloNIDine HCL 0.2 MG TAB PO SCH (21:20)
[2023-05-03] MEDS: HYDROmorphone 0.5 MG/0.5 ML SYRINGE IVP PRN (22:17)
[2023-05-04] MEDS: HYDROmorphone 1 MG/ML 1 ML SYRINGE IVP PRN (01:10)
[2023-05-04] MEDS: KETOROLAC 15 MG/ML 1 ML VIAL IVP PRN ×2 (02:35→08:01)
[2023-05-04] MEDS: HYDROmorphone 0.5 MG/0.5 ML SYRINGE IVP PRN (05:23)
[2023-05-04 07:36] VITALS: BP 126/72; PULSE 50; RESP 18; TEMP 98.1
[2023-05-04] MEDS: PANTOPRAZOLE 40 MG/10 ML VIAL IVP SCH ×2 (08:03→10:53)
[2023-05-04] MEDS: SIMETHICONE 80 MG CHEWABLE PO SCH ×2 (08:05→13:44)
[2023-05-04] MEDS: SODIUM CHLORIDE 0.9% 1,000 ML IV SCH ×2 (08:05→10:53)
[2023-05-04] MEDS: NON FORMULARY DRUG (Dextroamphetamine/Amphetamine [Adderall] 20 MG Tablet) PO SCH (08:05)
--- NOTE | 2023-05-04 08:39 | P.OP ---
Date of Procedure: 05/03/23 Preoperative Diagnosis: Acute cholecystitis Postoperative Diagnosis: Acute cholecystitis Procedure(s) Performed: Laparoscopic cholecystectomy Anesthesia: MARIAA Surgeon: Praful Aiken Estimated Blood Loss (ml): 5 Pathology: other (Gallbladder) Condition: stable Disposition: PACU Description of Procedure: The patient was placed on the operating table. The patient received a general endotracheal tube anesthesia. The patients abdomen was prepped and draped in the usual sterile fashion. Through an infraumbilical stab incision, the fascia of the anterior abdominal wall was grasped with a pair of Kochers and then the Veress needle was placed in the peritoneal cavity. Position of the Veress needle was confirmed with positive drop test. The abdomen was then insufflated. After adequate insufflation, the 10 mm trocar was placed in the peritoneal cavity. Following this the laparoscope was placed in the peritoneal cavity. The patient was placed in the head-up, right side up position and then a 5 mm trocar was placed in the right lateral and right subcostal position under direct visualization. A 8 mm trocar was placed in the epigastric position. The gallbladder was grasped in the fundus and infundibulum. Traction on the gallbladder was placed in the lateral and the cephalad positions. The triangle of Calot was visualized.. The cystic duct was bluntly dissected until the union of the cystic duct and common bile duct was seen. A critical view of safety was achieved. The cystic duct was then divided and sealed with the Harmonic scissors. A PDS Endoloop was then placed throughout the cystic duct stump. The cystic artery divided and sealed with the Harmonic scissors. The gallbladder was then removed from the liver bed using Harmonic scissors. The gallbladder was then extracted through the epigastric port site. Operative field was checked for any bleeding spots and Harmonic scissors was used to coagulate the liver bed. The abdomen was irrigated. The trocars were removed. The skin was closed using interrupted 3-0 Vicryl suture. Dermabond dressing were applied. The patient tolerated the procedure well.
--- NOTE | 2023-05-04 12:05 | P.PN ---
Subjective Progress Note Date: 05/04/23 CHIEF COMPLAINT: Chronic cholecystitis HISTORY OF PRESENT ILLNESS: Patient is postop day #1 status post laparoscopic cholecystectomy for chronic cholecystitis. She is complaining mostly of back pain. Her pain feels different than what brought her into the hospital. She is having flatus. Denies any nausea or vomiting. She tolerated clear liquid diet and is supposed to eat regular diet this afternoon. Denies any difficulty urinating. Apparently patient did have some bleeding at trocar incision site on the right. This has stopped bleeding. Afebrile. No new labs. PHYSICAL EXAM: VITAL SIGNS: Reviewed. GENERAL: Well-developed in no acute distress. ABDOMEN: Soft. Nondistended. Incision sites clean dry and intact NEUROLOGIC: Alert and oriented. Cranial nerves II through XII grossly intact. ASSESSMENT: 1. Chronic cholecystitis status post laparoscopic cholecystectomy PLAN: -Patient is stable for discharge from surgical standpoint if tolerating advancement of diet -Encourage patient to ambulate -Continue pain management Physician Parachute Marker note has been reviewed by physician. Signing provider agrees with the documented findings, assessment, and plan of care. Objective - Vital Signs Vital signs: Vital Signs Temp 98.1 F 05/04/23 07:00 Pulse 50 L 05/04/23 07:00 Resp 18 05/04/23 07:00 BP 126/72 05/04/23 07:00 Pulse Ox 99 05/04/23 07:00 FiO2 Intake & Output 05/03/23 05/04/23 05/04/23 18:59 06:59 18:59 Intake Total 850 240 Output Total 605 Balance 245 240 Intake: IV 850 Oral 240 Output: Urine 600 Estimated Blood Loss 5 Other: Voiding Method Toilet # Voids 3 - Labs CBC & Chem 7: 05/02/23 07:03 05/02/23 07:03
--- NOTE | 2023-05-04 15:09 | P.DS ---
Providers Date of admission: 04/30/23 19:13 Expected date of discharge: 05/04/23 Attending physician: Nixon Nguyen MD Consults: 05/01/23 08:36 Consult Physician Routine Consulting Provider: Praful Aiken Consult Reason/Comments: Acute cholecystitis Do you want consulting provider notified?: Yes Primary care physician: Nixon Nguyen MD Hospital Course: Acute cholecystitis, status post laparoscopic cholecystectomy Hospital course: Status post laparoscopic cholecystectomy, postop day #1. Tolerated procedure well. Pain controlled. Tolerating clear diet, denies naus ea ,vomiting. Passing flatus. Afebrile. Significant clinical improvement. Patient will be discharged home later today, in a stable condition with guarded prognosis, after tolerating diet advancement, pending final DC recommendations and clearance per surgery.(Per general surgery, no further antibiotics recommended at DC) The impression and plan of care has been dictated as directed. : I performed a history and examination of this patient, discussed the same with the dictator. I agree with the dictator's note ,documented as a scribe. Any additional findings or plans will be noted. Patient Condition at Discharge: Stable Plan - Discharge Summary New Discharge Prescriptions: Continue Dextroamphetamine/Amphetamine [Adderall] 20 mg PO BID cloNIDine HCL [Catapres] 0.6 mg PO HS HYDROcodone/APAP 5-325MG [[place] 5-325] 1 tab PO Q6HR PRN 3 Days #12 tab PRN Reason: Pain Discontinued Amoxic-Pot Clav 875-125Mg [Augmentin 875-125] 1 tab PO Q12HR 7 Days #14 tab Discharge Medication List Dextroamphetamine/Amphetamine [Adderall] 20 mg PO BID 04/27/23 [History] cloNIDine HCL [Catapres] 0.6 mg PO HS 04/27/23 [History] HYDROcodone/APAP 5-325MG [[place] 5-325] 1 tab PO Q6HR PRN 3 Days #12 tab 04/30/23 [Rx] Follow up Appointment(s)/Referral(s): Nixon Nguyen MD [Primary Care Provider] - 1 Week Praful Aiken MD [STAFF PHYSICIAN] - 1 Week Activity/Diet/Wound Care/Special Instructions: No driving while taking [place] No lifting over 10 pounds Shower daily. No soaking or tub baths for 2 weeks Very light activity until you are reevaluated at your follow up appointment with your surgeon
== END 2023-05-04 13:44 ==
LOC: EC 15:56 → 6NMEDSUR 19:13
PROVIDERS: ADMIT Family Medicine; ATTEND Family Medicine
DX: K81.1 Chronic cholecystitis (principal); I10 Essential (primary) hypertension; F41.9 Anxiety disorder, unspecified; F32.A Depression, unspecified; Z87.442 Personal history of urinary calculi; Z98.891 History of uterine scar from previous surgery; Z90.710 Acquired absence of both cervix and uterus; Z98.890 Other specified postprocedural states; F17.210 Nicotine dependence, cigarettes, uncomplicated; E87.6 Hypokalemia; E87.20 Acidosis, unspecified; F90.9 Attention-deficit hyperactivity disorder, unspecified type; Z79.899 Other long term (current) drug therapy; Z88.2 Allergy status to sulfonamides
CPT/HCPCS: 96376 ×3; 96361; 96365; 96366; 96375; 36415; 88304; 80053 ×2; 80048; 82150; 83605; 83690; 83735 ×2; 84100 ×2; 85025 ×3; 81003; 47562; G0378 ×5; J2250; J0330; J2060; J0360; J0780; J1644; J1100; J2710; J3480; J2405 ×3; J0690; J3010; J1170 ×7; J1885 ×2; J2704; C9113; J2001

== ENCOUNTER 2023-10-07 12:59 | Inpatient (IN) | payer MEDICAID, OTHER ==
--- NOTE | 2023-10-07 13:47 | ED ---
Psych HPI - General Source: patient Mode of arrival: ambulatory <Carolin Kaufman - Last Filed: 10/07/23 13:47> - General Source: RN notes reviewed, old records reviewed <Tirso Cadena - Last Filed: 10/08/23 07:38> - General Chief Complaint: Psychiatric Symptoms Stated Complaint: Mental health Time Seen by Provider: 10/07/23 13:47 - History of Present Illness Initial Comments: Patient is a 48 old female presents to the emergency room with complaint of worsening depression and suicidal ideation. Has plan. (Carolin Kaufman) Patient is a 48-year-old female presents with Department complaining of suicidal ideations. Has history of anxiety and depression. States she has a plan to shoot herself if she does own a gun at home. Has not attempted to hurt herself in the past. No history of drug use. No history of significant alcohol use. Denies any visual or auditory hallucinations. Denies any homicidal ideations, attempts, plans. Endorses recent social stressors as the cause of current complaints. Presents for further evaluation at this time. Does have a therapist and a psychiatrist who recommended him here for evaluation. Patient originally evaluated as a quick note. I evaluated her when she was placed in a room. (Tirso Cadena) - Related Data Home Medications Medication Instructions Recorded Confirmed Dextroamphetamine/Amphetamine 20 mg PO BID@0400,0900 04/27/23 10/07/23 [Adderall] cloNIDine HCL [Catapres] 0.6 mg PO HS 04/27/23 10/07/23 Bimatoprost [Latisse 0.03% Topical 1 drop BOTH EYES DAILY 10/07/23 10/07/23 Soln] Buprenorphine HCl/Naloxone HCl 0.5 film SL DAILY 10/07/23 10/07/23 [Suboxone 8 mg-2 mg Sl Film] Ibuprofen [Motrin] 800 mg PO TID@0400,1200,2000 10/07/23 10/07/23 Allergies Allergy/AdvReac Type Severity Reaction Status Date / Time Sulfa (Sulfonamide Allergy Severe Rash/Hives Verified 10/07/23 15:43 Antibiotics) Review of Systems ROS Other: All systems not noted in ROS Statement are negative. <Carolin Kaufman - Last Filed: 10/07/23 13:47> ROS Other: All systems not noted in ROS Statement are negative. <Tirso Cadena - Last Filed: 10/08/23 07:38> ROS Statement: Those systems with pertinent positive or pertinent negative responses have been documented in the HPI. Review of Systems: CONST: Denies fever EYES: Denies blurry vision ENT: Denies nasal congestion C/V: Denies Chest pain RESP: Denies shortness of breath GI: Denies abdominal pain : Denies dysuria SKIN: Denies rash. MSK: Denies joint pain. NEURO: Denies headache (Tirso Cadena) Past Medical History Past Medical History: No Reported History Additional Past Medical History / Comment(s): KIDNEY STONES History of Any Multi-Drug Resistant Organisms: None Reported Past Surgical History: Section, Cholecystectomy, Hysterectomy Additional Past Surgical History / Comment(s): breast augmentation, Past Anesthesia/Blood Transfusion Reactions: No Reported Reaction Past Psychological History: Anxiety, Bipolar, Depression, Schizophrenia Smoking Status: Current every day smoker Past Alcohol Use History: Daily Past Drug Use History: None Reported <Carolin Kaufman - Last Filed: 10/07/23 13:47> - Past Family History Father Family Medical History: Unable to Obtain Mother Family Medical History: Unable to Obtain <Tirso Cadena - Last Filed: 10/08/23 07:38> General Exam Limitations: no limitations <Carolin Kaufman - Last Filed: 10/07/23 13:47> <Tirso Cadena - Last Filed: 10/08/23 07:38> - General Exam Comments Initial Comments: Visual Physical Exam Vital signs reviewed General: Well-appearing, nontoxic, no acute distress. Head: Normocephalic, atraumatic Eyes: PERRLA, EOMI ENT: Airway patent Chest: Nonlabored breathing Skin: No visual rash, normal skin tone Neuro: Alert and oriented 3 Musculoskeletal: No gross abnormalities (Carolin Kaufman) General: Appears in no acute distress. HEAD: Normal with no signs of head trauma. EYES: EOMI. ENT: Hearing grossly intact. RESPIRATORY: No respiratory distress. C/V: Regular rate and rhythm. ABD: Abdomen is nondistended. EXT: No obvious deformity. SKIN: No rashes or lesions observed on exposed skin. NEURO: Alert and oriented. (Tirso Cadena) Course Vital Signs 10/07/23 13:40 Temperature 98.2 F Pulse Rate 96 Respiratory 16 Rate Blood Pressure 137/91 O2 Sat by Pulse 97 Oximetry Medical Decision Making <Carolin Kaufman - Last Filed: 10/07/23 13:47> - Lab Data Result diagrams: 10/08/23 06:26 10/08/23 06:26 <Tirso Cadena - Last Filed: 10/08/23 07:38> - Medical Decision Making Quick note portion completed by myself, electronically signed Carolin Kaufman PAC. (Carolin Kaufman) Was pt. sent in by a medical professional or institution (, PA, AWNING HANGER SUPERVISOR, urgent care, hospital, or [place] [facility] facility...) When possible be specific @ -Sent by psychiatrist, therapist for evaluation by psychiatry Did you speak to anyone other than the patient for history (EMS, parent, family, police, friend...)? What history was obtained from this source @ -No Did you review nursing and triage notes (agree or disagree)? Why? @ -I reviewed and agree with nursing and triage notes Were old charts reviewed (outside hosp., previous admission, EMS record, old EKG , old radiological studies, urgent care reports/EKG's, [place] health care facility records)? Report findings @ -No old charts were reviewed Differential Diagnosis (chest pain, altered mental status, abdominal pain women, abdominal pain men, vaginal bleeding, weakness, fever, dyspnea, syncope, headache, dizziness, GI bleed, back pain, seizure, CVA, palpatations, mental health, musculoskeletal)? @ -Differential Mental Health Depression, anxiety, bipolar, psychosis, schizophrenia, borderline personality, situational depression, adjustment disorder, behavioral disorder, brain tumor, malingering, substance abuse, encephalopathy, medication reaction, dementia, hypothyroidism, degenerative neurologic disorder, lupus.... This is not meant to be all-inclusive list EKG interpreted by me (3pts min.). @ -None done X-rays interpreted by me (1pt min.). @ -None done CT interpreted by me (1pt min.). @ -None done U/S interpreted by me (1pt. min.). @ -None done What testing was considered but not performed or refused? (CT, X-rays, U/S, labs)? Why? @ -None What meds were considered but not given or refused? Why? @ -None Did you discuss the management of the patient with other professionals (professionals i.e. , PA, AWNING HANGER SUPERVISOR, lab, RT, psych nurse, professor of social work, vp digital marketing social media and crm, teacher, contact officer, home health care case manager)? Give summary @ -EPS notified consult Was smoking cessation discussed for >3mins.? @ -No Was critical care preformed (if so, how long)? @ -No Were there social determinants of health that impacted care today? How? (Homelessness, low income, unemployed, alcoholism, drug addiction, transpo rtation, low edu. Level, literacy, decrease access to med. care, nursing home, rehab)? @ -No Was there de-escalation of care discussed even if they declined (Discuss DNR or withdrawal of care, Hospice)? DNR status @ -No What co-morbidities impacted this encounter? (DM, HTN, Smoking, COPD, CAD, Cancer, CVA, ARF, Chemo, Hep., AIDS, mental health diagnosis, sleep apnea, morbid obesity)? @ -None Was patient admitted / discharged? Hospital course, mention meds given and route, prescriptions, significant lab abnormalities, going to OR and other pertinent info. @ -Based on the patient's presentation and physical exam, presents for psychiatric evaluation for suicidal ideations. She was placed in green scrubs. Sitter was ordered. Suicide precautions ordered. The hCG is 0. UDS is still pending. Vital signs are within acceptable limits. She was given a small dose of Ativan for anxiety. Patient is suicidal ideations with a plan to shoot herself with her, which she has at home. At this time, patient is medically cleared for evaluation by psychiatry. Disposition pending psychiatric evaluation. EPS is notified of the consult. Patient eventually admitted to inpatient psychiatry after my shift ended. Undiagnosed new problem with uncertain prognosis? @ -No Drug Therapy requiring intensive monitoring for toxicity (Heparin, Nitro, Insulin, Cardizem)? @ -No Were any procedures done? @ -No Diagnosis/symptom? @ -Encounter for psychiatric evaluation, suicidal ideations Acute, or Chronic, or Acute on Chronic? @ -Acute Uncomplicated (without systemic symptoms) or Complicated (systemic symptoms)? @ -Uncomplicated Side effects of treatment? @ -No Exacerbation, Progression, or Severe Exacerbation? @ -No Poses a threat to life or bodily function? How? (Chest pain, USA, SD, pneumonia, PE, COPD, DKA, ARF, appy, cholecystitis, CVA, Diverticulitis, Homicidal, Suicidal, threat to staff... and all critical care pts) @ -Possibly, yes (Tirso Cadena) - Lab Data Lab Results 10/07/23 10/07/23 10/07/23 Range/Units 14:51 14:51 14:51 Urine Color Yellow Urine Appearance Clear (Clear) Urine pH 6.5 (5.0-8.0) Ur Specific [place] 1.015 (1.001-1.035) Urine Protein Negative (Negative) Urine Glucose (UA) Negative (Negative) Urine Ketones Negative (Negative) Urine Blood Negative (Negative) Urine Nitrite Negative (Negative) Urine Bilirubin Negative (Negative) Urine Urobilinogen 0.2 (<2.0) mg/dL Ur Leukocyte Esterase Negative (Negative) Urine HCG, Qual Not Detected (Not Detectd) Urine Opiates Screen Not Detected (NotDetected) Ur Oxycodone Screen Not Detected (NotDetected) Urine Methadone Screen Not Detected (NotDetected) Ur Propoxyphene Screen Not Detected (NotDetected) Ur Barbiturates Screen Not Detected (NotDetected) U Tricyclic Antidepress Not Detected (NotDetected) Ur Phencyclidine Scrn Not Detected (NotDetected) Ur Amphetamines Screen Detected H (NotDetected) U Methamphetamines Scrn Not Detected (NotDetected) U Benzodiazepines Scrn Not Detected (NotDetected) Urine Cocaine Screen Not Detected (NotDetected) U Marijuana (THC) Screen Detected H (NotDetected) SARS-CoV-2 (PCR) (Not Detectd) 10/07/23 Range/Units 17:40 Urine Color Urine Appearance (Clear) Urine pH (5.0-8.0) Ur Specific [place] (1.001-1.035) Urine Protein (Negative) Urine Glucose (UA) (Negative) Urine Ketones (Negative) Urine Blood (Negative) Urine Nitrite (Negative) Urine Bilirubin (Negative) Urine Urobilinogen (<2.0) mg/dL Ur Leukocyte Esterase (Negative) Urine HCG, Qual (Not Detectd) Urine Opiates Screen (NotDetected) Ur Oxycodone Screen (NotDetected) Urine Methadone Screen (NotDetected) Ur Propoxyphene Screen (NotDetected) Ur Barbiturates Screen (NotDetected) U Tricyclic Antidepress (NotDetected) Ur Phencyclidine Scrn (NotDetected) Ur Amphetamines Screen (NotDetected) U Methamphetamines Scrn (NotDetected) U Benzodiazepines Scrn (NotDetected) Urine Cocaine Screen (NotDetected) U Marijuana (THC) Screen (NotDetected) SARS-CoV-2 (PCR) Not Detected (Not Detectd) Disposition <Carolin Kaufman - Last Filed: 10/07/23 13:47> <Tirso Cadena - Last Filed: 10/08/23 07:38> Clinical Impression: Suicidal ideations, Encounter for psychiatric assessment Disposition: ADMITTED IP TO THIS [facility] Condition: Stable
[2023-10-07] MEDS ORDERED: LORazepam 1 MG TAB PO STA (14:33)
[2023-10-07 15:12] LABS: Appearance,Urine Clear (Clear); Bilirubin,Urine Negative (Negative); Blood,Urine Negative (Negative); Color,Urine Yellow; Glucose,Urine (UA) Negative (Negative); Ketones,Urine Negative (Negative); PH, Urine 6.5 (5.0-8.0); Protein,Urine Negative (Negative); Specific Gravity,Urine 1.015 (1.001-1.035)
[2023-10-07 15:13] LABS: Leukocyte Esterase,Urine Negative (Negative); Nitrite,Urine Negative (Negative); Urobilinogen,Urine 0.2 mg/dL (<2.0)
[2023-10-07] MEDS ORDERED: HALOPERIDOL LACTATE 5 MG/ML 1 ML VIAL IM PRN (20:02)
[2023-10-07] MEDS ORDERED: LORazepam 2 MG/ML INJ IM PRN (20:02)
[2023-10-07] MEDS ORDERED: ACETAMINOPHEN TAB 325 MG TAB PO PRN (20:02)
[2023-10-07] MEDS ORDERED: MAG HYDROX/AL HYDROX/SIMETH 30 ML CUP PO PRN (20:02)
[2023-10-07] MEDS ORDERED: haloperidoL 5 MG TAB PO PRN (20:09)
[2023-10-07 20:25] LABS: Amphetamine Screen,Urine Detected (NotDetected); Barbiturate Screen,Urine Not Detected (NotDetected); Benzodiazepines Screen,Urine Not Detected (NotDetected); Cocaine Screen,Urine Not Detected (NotDetected); Methadone Screen, Urine Not Detected (NotDetected); Opiate Screen,Urine Not Detected (NotDetected); Oxycodone Screen, Urine Not Detected (NotDetected); Phencyclidine Screen,Urine Not Detected (NotDetected); Tricyclic Antidepressant,Urine Not Detected (NotDetected); Urn Cannabinoid Scrn Detected (NotDetected)
[2023-10-07] MEDS ORDERED: traZODone HCL 50 MG TAB PO SCH (21:00)
[2023-10-07] MEDS: cloNIDine HCL 0.1 MG TAB PO SCH (21:09)
[2023-10-07] MEDS: traZODone HCL 50 MG TAB PO PRN (21:11)
[2023-10-07] MEDS: BUPRENORPHINE HCL SUBLINGUAL SCH (21:45)
[2023-10-07] MEDS: NALOXONE HCL SUBLINGUAL SCH (21:45)
[2023-10-07] MEDS: [UNRECOGNIZED DRUG - OTHER] SUBLINGUAL SCH (21:45)
[2023-10-08 06:44] LABS: Basophils % (A) 1 %; Eosinophils # (A) 0.2 k/uL (0-0.7); Eosinophils % (A) 4 %; HCT 44.6 % (34.0-46.0); HGB 14.7 gm/dL (11.4-16.0); Lymphocytes # (A) 1.5 k/uL (1.0-4.8); Lymphocytes % (A) 32 %; MCH 32.3 pg (25.0-35.0); MCV 97.6 fL (80.0-100.0); Mean Platelet Volume 8.2; Monocytes # (A) 0.4 k/uL (0-1.0); Monocytes % (A) 8 %; Neutrophils # (A) 2.6 k/uL (1.3-7.7); Neutrophils % (A) 54 %; Platelet Count 233 k/uL (150-450); RBC 4.57 m/uL (3.80-5.40); RDW 12.8 % (11.5-15.5); WBC 4.9 k/uL (3.8-10.6)
[2023-10-08 06:58] LABS: ALT 17 U/L (4-34); AST 29 U/L (14-36); African American GFR (CKD) >90 (>60 ml/min/1.73 sqM); Albumin 3.7 g/dL (3.5-5.0); Alkaline Phosphatase 89 U/L (38-126); Anion Gap 6 mmol/L; Blood Urea Nitrogen 11 mg/dL (7-17); Calcium 9.4 mg/dL (8.4-10.2); Carbon Dioxide 28 mmol/L (22-30); Chloride 105 mmol/L (98-107); Glucose 92 mg/dL (74-99); Non-African American GFR(CKD) >90 (>60 ml/min/1.73 sqM); Potassium 4.3 mmol/L (3.5-5.1); Sodium 139 mmol/L (137-145); Total Bilirubin 0.8 mg/dL (0.2-1.3); Total Protein 6.2 g/dL (6.3-8.2)
[2023-10-08] MEDS: IBUPROFEN 600 MG TAB PO PRN ×2 (07:25→14:54)
[2023-10-08] MEDS: NICOTINE 14MG/24HR PATCH TRANSDERM SCH (07:56)
[2023-10-08] MEDS: BIMATOPROST BOTH EYES SCH (07:58)
[2023-10-08] MEDS ORDERED: Buprenorphine Hcl/Naloxone Hcl [Suboxone 8 Mg-2 Mg Sl Film] 1 EACH Fil SUBLINGUAL SCH (09:00)
--- NOTE | 2023-10-08 09:19 | P.CONS ---
History of Present Illness - Reason for Consult Consult date: 10/08/23 medical eval - Chief Complaint suicidal - History of Present Illness Sbuha Teague is a 48 yo F with PMH of bipolar disorder, ADHD, hx opiate abuse who presented to the ED with suicidal ideations with a plan of using a gun. She states that over the past week or so she has been feeling a lot of pressure in her work and home life and states she cannot cope with so much negativity. She describes tearfulness and frustration on a daily basis. She denies drug or alcohol abuse, no hallucination. She denies any physical complains today, no chest pain, shortness of breath, abdominal pain, nausea, vomiting. On presentation her vitals and labs are reviewed and unremarkable. Review of Systems All systems: negative Constitutional: Denies chills, Denies fever Eyes: denies blurred vision, denies pain Ears, nose, mouth and throat: Denies headache, Denies sore throat Cardiovascular: Denies chest pain, Denies shortness of breath Respiratory: Denies cough Gastrointestinal: Denies abdominal pain, Denies diarrhea, Denies nausea, Denies vomiting Genitourinary: Denies dysuria, Denies hematuria Musculoskeletal: Denies myalgias Integumentary: Denies pruritus, Denies rash Neurological: Denies numbness, Denies weakness Psychiatric: Reports anxiety, Reports depression, Reports suicidal ideation Endocrine: Denies fatigue, Denies weight change Past Medical History Past Medical History: No Reported History Additional Past Medical History / Comment(s): KIDNEY STONES History of Any Multi-Drug Resistant Organisms: None Reported Past Surgical History: Section, Cholecystectomy, Hysterectomy Additional Past Surgical History / Comment(s): breast augmentation Past Anesthesia/Blood Transfusion Reactions: No Reported Reaction Smoking Status: Current every day smoker - Past Family History Father Family Medical History: Unable to Obtain Mother Family Medical History: Unable to Obtain Medications and Allergies Home Medications Medication Instructions Recorded Confirmed Type Dextroamphetamine/Amphetamine 20 mg PO BID@0400,0900 04/27/23 10/07/23 History [Adderall] cloNIDine HCL [Catapres] 0.6 mg PO HS 04/27/23 10/07/23 History Bimatoprost [Latisse 0.03% Topical 1 drop BOTH EYES DAILY 10/07/23 10/07/23 History Soln] Buprenorphine HCl/Naloxone HCl 0.5 film SL DAILY 10/07/23 10/07/23 History [Suboxone 8 mg-2 mg Sl Film] Ibuprofen [Motrin] 800 mg PO TID@0400,1200,199910/07/23 10/07/23 History Allergies Allergy/AdvReac Type Severity Reaction Status Date / Time Sulfa (Sulfonamide Allergy Severe Rash/Hives Verified 10/07/23 15:43 Antibiotics) Physical Exam Vitals: Vital Signs Temp Pulse Pulse Resp BP BP Pulse Ox 10/07/23 21:11 97.6 F 73 18 123/79 93 L 10/07/23 13:40 98.2 F 96 16 137/91 97 Intake and Output 10/07/23 10/08/23 10/08/23 22:59 06:59 14:59 Other: Weight 45.926 kg Vitals reviewed General: well developed, well nourished NAD HEENT: Normocephalic, atraumatic, mucus membranes moist Neck: supple, no JVD, no thyromegaly CV: Regular rate and rhythm, pulses 2+ Lungs: Normal effort. No wheezes or rales Abd: soft, nontender, bowel sounds present Neuro: Alert and oriented x3, no focal deficit Skin: warm and dry Results CBC & Chem 7: 10/08/23 06:26 10/08/23 06:26 Labs: Abnormal Lab Results - Last 24 Hours (Table) 10/07/23 10/08/23 Range/Units 14:51 06:26 Total Protein 6.2 L (6.3-8.2) g/dL Ur Amphetamines Screen Detected H (NotDetected) U Marijuana (THC) Screen Detected H (NotDetected) Assessment and Plan Plan: Suicidal ideation, bipolar disorder. Management per psychiatry. We will continue to follow ADHD, adult. Hold adderall Marijuana abuse. Cessation counseling
[2023-10-08] MEDS: [UNRECOGNIZED DRUG - OTHER] SUBLINGUAL SCH ×2 (09:27→20:37)
[2023-10-08] MEDS: NALOXONE HCL SUBLINGUAL SCH ×2 (09:27→20:37)
[2023-10-08] MEDS: BUPRENORPHINE HCL SUBLINGUAL SCH ×2 (09:27→20:37)
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
[2023-10-08] MEDS: DULoxetine HCL 30 MG CAPSULE.DR PO SCH (14:53)
[2023-10-08 19:01] LABS: Chol/HDL Ratio 2.55 Ratio; LDL Cholesterol,Calculated 76.5 mg/dL (0.0-131.0); VLDL Calculation 15.36 mg/dL (5.00-40.00)
[2023-10-08] MEDS: QUEtiapine 50 MG TAB PO SCH (20:36)
[2023-10-08] MEDS: cloNIDine HCL 0.1 MG TAB PO SCH (20:36)
[2023-10-09] MEDS: NICOTINE 14MG/24HR PATCH TRANSDERM SCH (08:23)
[2023-10-09] MEDS: DULoxetine HCL 30 MG CAPSULE.DR PO SCH (08:23)
[2023-10-09] MEDS: BUPRENORPHINE HCL SUBLINGUAL SCH ×2 (08:24→21:15)
[2023-10-09] MEDS: NALOXONE HCL SUBLINGUAL SCH ×2 (08:24→21:15)
[2023-10-09] MEDS: [UNRECOGNIZED DRUG - OTHER] SUBLINGUAL SCH ×2 (08:24→21:15)
[2023-10-09] MEDS: LORazepam 1 MG TAB PO PRN ×2 (09:59→16:24)
--- NOTE | 2023-10-09 11:34 | P.PN ---
Progress Note - Text Progress Note Date: 10/09/23 Interval history: Patient was seen wandering the hallways and was directable and agreeable to s peak with script writer. She appears to be more calm today during interaction. She states that she is still feeling fairly depressed, continues to endorse some passive suicidal thoughts, no intent or plan. States that she felt very anxious this morning before visitation. States that she does not know how she is going to take out her boyfriend from the house because "he is a source of my problems". She states that she slept fairly well last night with Seroquel once her mental symptoms. We spoke about increasing the Cymbalta which is okay with. States that her appetite is improving.. At this time patient denies any homicidal ideations intent or plan. Denies any Auditory or visual hallucinations. Patient denies any side effects from the medications and has been compliant with meds. Mental status exam: General Appearance: Patient appears to be thin, wearing glasses, stated age is alert, directable, and cooperative. Behavior: No agitated behavior. Patient is calm and directable, calmer Today Speech: Patient's speech is fluent and nonpressured. Mood/Affect: Mood is improving mildly, affect is congruent and constricted. Suicidality/Homicidality: Patient denies having any homicidal ideation intent or plan. Admits to passive suicidal thoughts, no intent or plan. Perceptions: Patient denies any auditory or visual hallucinations. Though content/process: There is no evidence of any delusional thought content and thought process is linear and goal-directed. Memory and concentration: AOX3, grossly intact for the purposes of this session Judgment and insight: improving mildly Assessment/Plan: Continue with current diagnosis. Patient continues to meet criteria for inpatient psychiatric admission for symptom stabilization and safety.Patient will be maintained on current psychotropic medication regimen, with the exception of increasing Cymbalta to 60 mg daily for tomorrow. Monitor for medication compliance and for any psychotropic medication side effects. Will continue to monitor ongoing response to treatment. Encouraged participation in milieu.
[2023-10-09] MEDS: IBUPROFEN 600 MG TAB PO PRN (12:21)
[2023-10-09] MEDS: ADDERALL 20 MG PO SCH (12:53)
[2023-10-09] MEDS: IBUPROFEN 600 MG TAB PO SCH ×2 (16:21→21:20)
[2023-10-09] MEDS: cloNIDine HCL 0.1 MG TAB PO SCH (21:16)
[2023-10-09] MEDS: QUEtiapine 50 MG TAB PO SCH (21:16)
[2023-10-09] MEDS: LATANOPROST 0.005% OPHTH DROPS 2.5 ML BTL BOTH EYES SCH (21:19)
[2023-10-09] MEDS: traZODone HCL 50 MG TAB PO PRN (22:57)
[2023-10-10] MEDS: BUPRENORPHINE HCL SUBLINGUAL SCH ×2 (08:46→21:25)
[2023-10-10] MEDS: [UNRECOGNIZED DRUG - OTHER] SUBLINGUAL SCH ×2 (08:46→21:25)
[2023-10-10] MEDS: NALOXONE HCL SUBLINGUAL SCH ×2 (08:46→21:25)
[2023-10-10] MEDS: NICOTINE 14MG/24HR PATCH TRANSDERM SCH (09:05)
[2023-10-10] MEDS: ADDERALL 20 MG PO SCH (09:06)
[2023-10-10] MEDS: IBUPROFEN 600 MG TAB PO SCH ×3 (09:06→20:36)
[2023-10-10] MEDS: DULoxetine HCL 60 MG CAPSULE.DR PO SCH (09:06)
--- NOTE | 2023-10-10 11:07 | P.PN ---
Progress Note - Text Progress Note Date: 10/10/23 Interval history: Patient was seen lying in bed today and was agreeable to seeing the advertising writer. She appears to be more calm today during interaction. She claims that she is still fairly worried about her home situation. Continues to endorse depression. States that she feels "the same". Today she is denying any suicidal thoughts however. States that her appetite is improving.. At this time patient denies any homicidal ideations intent or plan. Denies any Auditory or visual hallucinations. Patient denies any side effects from the medications and has been compliant with meds. Mental status exam: General Appearance: Patient appears to be thin, wearing glasses, stated age is alert, directable, and cooperative. Behavior: No agitated behavior. Patient is calm and directable, calmer today Speech: Patient's speech is fluent and nonpressured. Mood/Affect: Mood is improving mildly, affect is congruent and constricted. Suicidality/Homicidality: Patient denies having any homicidal ideation intent or plan. Denies any suicidal thoughts, intent or plan. Perceptions: Patient denies any auditory or visual hallucinations. Though content/process: There is no evidence of any delusional thought content and thought process is linear and goal-directed. Memory and concentration: AOX3, grossly intact for the purposes of this session Judgment and insight: improving mildly Assessment/Plan: Continue with current diagnosis. Patient continues to meet criteria for inpatient psychiatric admission for symptom stabilization and safety.Patient will be maintained on current psychotropic medication regimen. Monitor for medication compliance and for any psychotropic medication side effects. Will continue to monitor ongoing response to treatment. Encouraged participation in milieu.
[2023-10-10] MEDS: LORazepam 1 MG TAB PO PRN (15:08)
[2023-10-10] MEDS: cloNIDine HCL 0.1 MG TAB PO SCH (20:36)
[2023-10-10] MEDS: QUEtiapine 50 MG TAB PO SCH (20:36)
[2023-10-10] MEDS: LATANOPROST 0.005% OPHTH DROPS 2.5 ML BTL BOTH EYES SCH (20:40)
[2023-10-10] MEDS: MAGNESIUM HYDROXIDE 2,400 MG/30 ML CUP PO PRN (22:14)
[2023-10-11] MEDS: traZODone HCL 50 MG TAB PO PRN (01:57)
[2023-10-11] MEDS: BIMATOPROST BOTH EYES SCH ×3 (06:10→09:10)
[2023-10-11] MEDS: NICOTINE 14MG/24HR PATCH TRANSDERM SCH (08:08)
[2023-10-11] MEDS: IBUPROFEN 600 MG TAB PO SCH ×3 (08:08→20:48)
[2023-10-11] MEDS: BUPRENORPHINE HCL SUBLINGUAL SCH ×2 (08:09→20:48)
[2023-10-11] MEDS: [UNRECOGNIZED DRUG - OTHER] SUBLINGUAL SCH ×2 (08:09→20:48)
[2023-10-11] MEDS: DULoxetine HCL 60 MG CAPSULE.DR PO SCH (08:09)
[2023-10-11] MEDS: NALOXONE HCL SUBLINGUAL SCH ×2 (08:09→20:48)
[2023-10-11] MEDS: ADDERALL 20 MG PO SCH (09:10)
[2023-10-11] MEDS ORDERED: traZODone HCL 50 MG TAB PO PRN (10:29)
--- NOTE | 2023-10-11 10:59 | P.PN ---
Progress Note - Text Progress Note Date: 10/11/23 Interval history: Patient was seen lying in bed today and was agreeable to seeing the health technical writer. States she did not have a good day yesterday, and cried all day. She states she's having high anxiety about going home, and was feeling sad. She states today, she's still feeling quite depressed and anxious, and continues endorsing suicidal thoughts, no active plan at this time. States that her appetite is improving. She states she's feeling quite tired today, and feels like she did not get enough sleep last night. Patient is not going to groups. Spoke with the patient about participating in milieu, and importance of coping skills. At this time patient denies any homicidal ideations intent or plan. Denies any Auditory or visual hallucinations. Patient denies any side effects from the medications and has been compliant with meds. Mental status exam: General Appearance: Patient appears to be thin, wearing glasses, stated age is alert, directable, and cooperative. Behavior: No agitated behavior. Patient is calm and directable, calmer today Speech: Patient's speech is fluent and nonpressured. soft tone Mood/Affect: Mood is anxious and depressed, affect is congruent and constricted. Suicidality/Homicidality: Patient denies having any homicidal ideation intent or plan. Having suicidal thoughts, no intent or plan. Perceptions: Patient denies any auditory or visual hallucinations. Though content/process: There is no evidence of any delusional thought content and thought process is linear and goal-directed. focused on her sx. Memory and concentration: AOX3, grossly intact for the purposes of this session Judgment and insight: improving mildly IMPRESSIONS: depressive disorder, unspecified, rule out bipolar depression Opioid dependence, currently on maintenance therapy Nicotine dependence Cannabis use disorder, mild PLAN: -Patient is admitted under voluntary status to [facility] for stabilization of psychiatric symptoms and safety. Patient has signed adult voluntary form and medication consent and is placed in patient's chart. -Medications : increase Seroquel 100mg qhs for mood stabilization/sleep, increase Cymbalta 30mg qhs + Cymbalta 60mg qam for mood/anxiety. continue with suboxone 8mg bid for opioid use disorder. decreased trazoodne to 25 mg qhs prn for sleep. -Ativan and Haldol PRN for agitation/aggression -NRT - nicotine patch -SW on board for discharge planning. Encourage patient to participate in groups to work on coping skills. Possible discharge by the end of the week if patient improves
[2023-10-11] MEDS: LORazepam 1 MG TAB PO PRN (13:58)
[2023-10-11] MEDS: MAGNESIUM HYDROXIDE 2,400 MG/30 ML CUP PO PRN (13:58)
[2023-10-11] MEDS: SENNOSIDES 8.6 MG TAB PO SCH (15:08)
[2023-10-11] MEDS: cloNIDine HCL 0.1 MG TAB PO SCH (20:49)
[2023-10-11] MEDS ORDERED: QUEtiapine 100 MG TAB PO SCH (21:00)
[2023-10-11] MEDS ORDERED: DULoxetine HCL 30 MG CAPSULE.DR PO SCH (21:00)
[2023-10-12] MEDS: BIMATOPROST BOTH EYES SCH ×2 (08:06→20:32)
[2023-10-12] MEDS: NICOTINE 14MG/24HR PATCH TRANSDERM SCH (08:10)
[2023-10-12] MEDS: ADDERALL 20 MG PO SCH (08:11)
[2023-10-12] MEDS: SENNOSIDES 8.6 MG TAB PO SCH (08:11)
[2023-10-12] MEDS: IBUPROFEN 600 MG TAB PO SCH ×3 (08:11→20:33)
[2023-10-12] MEDS: DULoxetine HCL 60 MG CAPSULE.DR PO SCH (08:12)
[2023-10-12] MEDS: BUPRENORPHINE HCL SUBLINGUAL SCH ×2 (08:13→20:45)
[2023-10-12] MEDS: NALOXONE HCL SUBLINGUAL SCH ×2 (08:13→20:45)
[2023-10-12] MEDS: [UNRECOGNIZED DRUG - OTHER] SUBLINGUAL SCH ×2 (08:13→20:45)
[2023-10-12] MEDS: SENNOSIDES-DOCUSATE SODIUM 1 EACH TAB PO SCH ×2 (12:27→20:32)
[2023-10-12] MEDS: lamoTRIgine 25 MG TAB PO SCH ×2 (12:27→20:32)
[2023-10-12] MEDS: MAGNESIUM HYDROXIDE 2,400 MG/30 ML CUP PO PRN (12:27)
--- NOTE | 2023-10-12 12:38 | P.PN ---
Progress Note - Text Progress Note Date: 10/12/23 Interval history: Patient was seen lying in bed today and was agreeable to seeing the television script writer. Rashaun chris appears tearful at first today, and states that she feels the medication is making her feel more depressed, however today, she is not endorsing suicidal thoughts. Patient became calmer as interview went on. Setter Helper spoke with patient about medication options, Patient agreed to starting Lamictal, advised to watch for rash, and to let nursing staff know if she notices any changes. endorsing anxiety aswell. today. States that her appetite is improving. She states she's feeling less tired today. Spoke with the patient about participating in milieu, and importance of coping skills. Patient verbalized understanding.At this time patient denies any homicidal ideations intent or plan. Denies any Auditory or visual hallucinations. Patient denies any side effects from the medications and has been compliant with meds. Mental status exam: General Appearance: Patient appears to be thin, wearing glasses, stated age is alert, directable, and cooperative. Behavior: No agitated behavior. Patient is calm and directable, Speech: Patient's speech is fluent and nonpressured. soft tone Mood/Affect: Mood is anxious and very depressed, affect is congruent and constricted. mildly improving Suicidality/Homicidality: Patient denies having any homicidal ideation intent or plan. Having suicidal thoughts, no intent or plan. Perceptions: Patient denies any auditory or visual hallucinations. Though content/process: There is no evidence of any delusional thought content and thought process is linear and goal-directed. focused on her sx. Memory and concentration: AOX3, grossly intact for the purposes of this session Judgment and insight: improving mildly IMPRESSIONS: Bipolar disorder current episode depressed Opioid dependence, currently on maintenance therapy Nicotine dependence Cannabis use disorder, mild PLAN: -Patient is admitted under voluntary status to [facility] for stabilization of psychiatric symptoms and safety. Patient has signed adult voluntary form and medication consent and is placed in patient's chart. -Medications : increase Seroquel 150 mg qhs for mood stabilization/sleep, d/c Cymbalta. add Lamictal 25mg bid for mood stabilization/depression. Educated patient to watch for rash, and to let nursing staff know if she notices one. continue with suboxone 8mg bid for opioid use disorder. trazodone 25 mg qhs prn for sleep. -Ativan and Haldol PRN for agitation/aggression -NRT - nicotine patch -SW on board for discharge planning. Encourage patient to participate in groups to work on coping skills. Possible discharge by the end of the week if patient improves
[2023-10-12] MEDS: cloNIDine HCL 0.1 MG TAB PO SCH (20:32)
[2023-10-12] MEDS ORDERED: QUEtiapine 100 MG TAB PO SCH (21:00)
[2023-10-13] MEDS: ADDERALL 20 MG PO SCH ×2 (08:26→09:01)
[2023-10-13] MEDS: [UNRECOGNIZED DRUG - OTHER] SUBLINGUAL SCH ×2 (08:26→21:26)
[2023-10-13] MEDS: NALOXONE HCL SUBLINGUAL SCH ×2 (08:26→21:26)
[2023-10-13] MEDS: BUPRENORPHINE HCL SUBLINGUAL SCH ×2 (08:26→21:26)
[2023-10-13] MEDS: IBUPROFEN 600 MG TAB PO SCH ×3 (08:26→21:05)
[2023-10-13] MEDS: NICOTINE 14MG/24HR PATCH TRANSDERM SCH ×2 (08:26→08:28)
[2023-10-13] MEDS: SENNOSIDES-DOCUSATE SODIUM 1 EACH TAB PO SCH ×2 (08:27→21:06)
[2023-10-13] MEDS: lamoTRIgine 25 MG TAB PO SCH (08:28)
--- NOTE | 2023-10-13 11:58 | P.PN ---
Progress Note - Text Progress Note Date: 10/13/23 Interval history: Patient was seen in the hallways, and was agreeable to seeing the television script writer in the office. Patient states that she was feeling ill yesterday, and stayed in her room. States today, when she showered, the water felt "P[place]" on her skin. she is feeling a little better. Patient states she believes that the Lamictal caused this. Talked with the patient about a different medication option, will start patient on previous regimen of Latuda and prozac, patient agreeable. Patient states today, she feels irritated, and not endorsing any anxiety. States that her appetite is improving. She states she's feeling less tired today. Spoke with the patient about participating in milieu, and importance of coping skills. Patient verbalized understanding. At this time patient denies any homicidal ideations intent or plan. Denies any Auditory or visual hallucinations. Patient denies any side effects from the medications and has been compliant with meds. Mental status exam: General Appearance: Patient appears to be thin, wearing glasses, stated age is alert, directable, and cooperative. Behavior: No agitated behavior. Patient is calm and directable, Speech: Patient's speech is fluent and nonpressured. soft tone, mildly improving Mood/Affect: Mood is "irritated", affect is congruent and constricted. mildly improving Suicidality/Homicidality: Patient denies having any homicidal ideation intent or plan. Having suicidal thoughts, no intent or plan. Perceptions: Patient denies any auditory or visual hallucinations. Though content/process: There is no evidence of any delusional thought content and thought process is linear and goal-directed. focused on her sx. improving Memory and concentration: AOX3, grossly intact for the purposes of this session Judgment and insight: improving mildly IMPRESSIONS: Bipolar disorder current episode depressed Opioid dependence, currently on maintenance therapy Nicotine dependence Cannabis use disorder, mild PLAN: -Patient is admitted under voluntary status to [facility] for stabilization of psychiatric symptoms and safety. Patient has signed adult voluntary form and medication consent and is placed in patient's chart. -Medications : d/c Seroquel, d/c Lamictal add Latuda 40mg with dinner qd, add prozac 20mg qd. .continue with suboxone 8mg bid for opioid use disorder. change trazodone 100 mg qhs scheduled for sleep. -Ativan and Haldol PRN for agitation/aggression -NRT - nicotine patch -SW on board for discharge planning. Encourage patient to participate in groups to work on coping skills. Possible discharge by the end of the week if patient improves
[2023-10-13] MEDS: FLUoxetine HCL 20 MG CAP PO SCH (12:40)
[2023-10-13] MEDS: LURASIDONE 40 MG TAB PO SCH (19:30)
[2023-10-13] MEDS: cloNIDine HCL 0.1 MG TAB PO SCH (21:06)
[2023-10-13] MEDS: traZODone HCL 100 MG TAB PO SCH (21:06)
[2023-10-13] MEDS: BIMATOPROST BOTH EYES SCH (21:07)
[2023-10-14] MEDS: NICOTINE 14MG/24HR PATCH TRANSDERM SCH (08:40)
[2023-10-14] MEDS: ADDERALL 20 MG PO SCH (08:40)
[2023-10-14] MEDS: IBUPROFEN 600 MG TAB PO SCH ×3 (08:40→20:05)
[2023-10-14] MEDS: SENNOSIDES-DOCUSATE SODIUM 1 EACH TAB PO SCH ×2 (08:40→20:06)
[2023-10-14] MEDS: [UNRECOGNIZED DRUG - OTHER] SUBLINGUAL SCH ×2 (08:40→20:04)
[2023-10-14] MEDS: NALOXONE HCL SUBLINGUAL SCH ×2 (08:40→20:04)
[2023-10-14] MEDS: FLUoxetine HCL 20 MG CAP PO SCH (08:40)
[2023-10-14] MEDS: BUPRENORPHINE HCL SUBLINGUAL SCH ×2 (08:40→20:04)
[2023-10-14 08:49] VITALS: BP 122/65; PULSE 106; RESP 18; TEMP 97.4
--- NOTE | 2023-10-14 10:59 | P.PN ---
Progress Note - Text Progress Note Date: 10/14/23 Interval history: Patient was seen in the hallways, and was agreeable to seeing the radio script writer in the office. Patient states that she is doing "really well" today, and positive about her living situation at home, and the future. states that her boyfriend will be moving out and that he is being amicable about it. States that her appetite is good. She states she' slept well last night. Spoke with the patient about participating in milieu, and importance of coping skills. Patient verbalized understanding, and has been attending groups. Patient excited to go home and see her family and sons for the upcoming holiday. Patient appears brighter today, and denies any anxiety or depression. Verbalized to patient that we will likely discharge tomorrow, due to changing her meds yesterday, patient verbalized understanding. At this time patient denies any homicidal ideations intent or plan. Denies any Auditory or visual hallucinations. Patient denies any side effects from the medications and has been compliant with meds. Mental status exam: General Appearance: Patient appears to be thin, wearing glasses, stated age is alert, directable, and cooperative. Behavior: No agitated behavior. Patient is calm and directable Speech: Patient's speech is fluent and nonpressured. soft tone, improving Mood/Affect: Mood is "very good", affect is congruent and constricted. improving Suicidality/Homicidality: Patient denies having any homicidal ideation intent or plan. Having suicidal thoughts, no intent or plan. Perceptions: Patient denies any auditory or visual hallucinations. Though content/process: There is no evidence of any delusional thought content and thought process is linear and goal-directed. improving Memory and concentration: AOX3, grossly intact for the purposes of this session Judgment and insight: improving IMPRESSIONS: Bipolar disorder current episode depressed Opioid dependence, currently on maintenance therapy Nicotine dependence Cannabis use disorder, mild PLAN: -Patient is admitted under voluntary status to MHU for stabilization of psychiatric symptoms and safety. Patient has signed adult voluntary form and medication consent and is placed in patient's chart. -Medications : Latuda 40mg with dinner qd for mood stabilization/depression, prozac 20mg qd for mood/anxiety. continue with suboxone 8mg bid for opioid use disorder. trazodone 100 mg qhs scheduled for sleep. -Ativan and Haldol PRN for agitation/aggression -NRT - nicotine patch -SW on board for discharge planning. Encourage patient to participate in groups to work on coping skills. Possible discharge tomorrow if patient continues to improve
[2023-10-14] MEDS: LURASIDONE 40 MG TAB PO SCH (18:22)
[2023-10-14] MEDS: cloNIDine HCL 0.1 MG TAB PO SCH (20:05)
[2023-10-14] MEDS: traZODone HCL 100 MG TAB PO SCH (20:05)
[2023-10-14] MEDS: BIMATOPROST BOTH EYES SCH (20:06)
[2023-10-15] MEDS: BUPRENORPHINE HCL SUBLINGUAL SCH (08:32)
[2023-10-15] MEDS: IBUPROFEN 600 MG TAB PO SCH (08:32)
[2023-10-15] MEDS: NICOTINE 14MG/24HR PATCH TRANSDERM SCH (08:32)
[2023-10-15] MEDS: [UNRECOGNIZED DRUG - OTHER] SUBLINGUAL SCH (08:32)
[2023-10-15] MEDS: NALOXONE HCL SUBLINGUAL SCH (08:32)
[2023-10-15] MEDS: ADDERALL 20 MG PO SCH (08:32)
[2023-10-15] MEDS: SENNOSIDES-DOCUSATE SODIUM 1 EACH TAB PO SCH (08:32)
[2023-10-15] MEDS: FLUoxetine HCL 20 MG CAP PO SCH (08:33)
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
== END 2023-10-15 12:09 | disposition home or self-care (01) | DRG 753 ==
LOC: EC 12:59 → 3MHU 19:53
PROVIDERS: ADMIT Psychiatry & Neurology Psychiatry; ATTEND Psychiatry & Neurology Psychiatry
DX: F31.30 Bipolar disorder, current episode depressed, mild or moderate severity, unspecified (principal); F11.20 Opioid dependence, uncomplicated; F12.90 Cannabis use, unspecified, uncomplicated; F17.200 Nicotine dependence, unspecified, uncomplicated; R45.851 Suicidal ideations; Z79.899 Other long term (current) drug therapy; Z81.8 Family history of other mental and behavioral disorders; Z87.442 Personal history of urinary calculi; Z90.710 Acquired absence of both cervix and uterus; Z91.51 Personal history of suicidal behavior; Z91.52 Personal history of nonsuicidal self-harm; Z11.52 Encounter for screening for COVID-19
CPT/HCPCS: 80053; 80061; 80306; 81003; 81025; 82075; 83036; 84443; 85025; 87635; 99285

== ENCOUNTER → 2023-11-25 | Outpatient (CLI) | payer OTHER ==
--- NOTE | 2023-11-26 09:04 | MM ---
Reason for Exam: Screening (asymptomatic). Last mammogram was performed 7 year(s) and 8 month(s) ago. Patient History: Menarche at age 8. First Full-Term at age 16. Right ovary removed at age 34. Hysterectomy at age 34. Hormonal Contraceptives, starting at age 31 for 1 year. 2012, Implant(s). Maternal grandmother had breast cancer. Maternal aunt had breast cancer. Risk Values: Lydia 5 year model risk: 0.8%. NCI Lifetime model risk: 7.1%. Prior Study Comparison: 08/23/2007 Bilateral Diagnostic Mammogram, [facility]. 07/13/2013 Bilateral Diagnostic Mammogram, [facility]. 04/23/2016 Bilateral Screening Mammogram, [facility]. Tissue Density: The breast tissue is heterogeneously dense. This may lower the sensitivity of mammography. Findings: Analyzed By CAD. There is no suspicious group of microcalcifications or new suspicious mass in either breast. Implants are intact. Overall Assessment: Benign, BI-RAD 2 Management: Screening Mammogram of both breasts in 1 year. . Patient should continue monthly self-breast exams. A clinical breast exam by your physician is recommended on an annual basis. This exam should not preclude additional follow-up of suspicious palpable abnormalities. Note on Lydia scores and lifetime risk: 1. A Lydia score greater than 3% is considered moderate risk. If this is the case, consider specialist referral to assess eligibility for a risk reducing agent. 2. If overall lifetime risk for the development of breast cancer is 20% or higher, the patient may qualify for future screening with alternating mammogram and breast MRI. Electronically signed and approved by: Oracio John M.D. Radiologis
== END | disposition home or self-care (01) ==
LOC: RADMAMWWP 14:27
PROVIDERS: ATTEND Family Medicine
DX: Z12.31 Encounter for screening mammogram for malignant neoplasm of breast (principal); Z80.3 Family history of malignant neoplasm of breast; Z98.82 Breast implant status
CPT/HCPCS: 77063; 77067

== ENCOUNTER → 2024-05-11 | Outpatient (CLI) | payer OTHER ==
--- NOTE | 2024-05-12 00:11 | US ---
EXAMINATION TYPE: US abdomen complete DATE OF EXAM: 05/11/2024 COMPARISON: NONE CLINICAL INDICATION: Female, 48 years old with history of R10.11 RUQ PAIN; RUQ pain for 1 year, getti ng worse and more frequent. cholecystectomy 10 months ago TECHNIQUE: Multiple sonographic images of the abdomen are obtained. FINDINGS: EXAM MEASUREMENTS: Liver Length: 14.8 cm Gallbladder Wall: Surgically absent CBD: 0.3 cm Spleen: 9.0 cm Right Kidney: 9.6 x 3.4 x 4.3 cm Left Kidney: 9.9 x 4.0 x 4.0 cm Pancreas: wnl Liver: wnl Gallbladder: Surgically absent Evidence for sonographic Thomason's sign: no CBD: wnl Spleen: wnl Right Kidney: no evidence of hydronephrosis Left Kidney: no evidence of hydronephrosis Upper IVC: wnl Abd Aorta: wnl IMPRESSION: 1. Unremarkable abdomen ultrasound
== END | disposition home or self-care (01) ==
LOC: RADUSWWP 06:54
PROVIDERS: ATTEND Family Medicine
DX: R10.11 Right upper quadrant pain (principal); Z90.49 Acquired absence of other specified parts of digestive tract
CPT/HCPCS: 76700

== ENCOUNTER 2025-04-10 10:02 | Observation (INO) | payer OTHER ==
[2025-04-10 10:09] VITALS: TEMP 96.7
[2025-04-10] MEDS ORDERED: LORazepam 1 MG/0.5 ML VIAL IV PRN ×3 (10:30)
[2025-04-10] MEDS: PANTOPRAZOLE 40 MG/10 ML VIAL IVP STA (10:38)
[2025-04-10] MEDS: ONDANSETRON 4 MG/2 ML VIAL IVP STA (10:38)
[2025-04-10] MEDS: SODIUM CHLORIDE 0.9% 1,000 ML IV SCH ×2 (10:39→14:04)
[2025-04-10 10:44] LABS: Basophils # (A) 0.03 10*3/uL (0.00-0.10); Basophils % (A) 0.2 %; Eosinophils # (A) 0.15 10*3/uL (0.04-0.35); Eosinophils % (A) 0.9 %; HCT 40.3 % (37.2-46.3); HGB 13.7 g/dL (12.0-15.0); Lymphocytes # (A) 0.87 10*3/uL (0.90-5.00); Lymphocytes % (A) 5.2 %; MCH 31.4 pg (27.0-32.0); MCV 92.4 fL (80.0-97.0); Mean Platelet Volume 10.5 fL (9.5-12.2); Monocytes # (A) 0.78 10*3/uL (0.20-1.00); Monocytes % (A) 4.7 %; Neutrophils # (A) 14.87 10*3/uL (1.80-7.70); Neutrophils % (A) 88.6 %; Platelet Count 252 10*3/uL (140-440); RBC 4.36 10*6/uL (4.10-5.20); WBC 16.76 10*3/uL (4.50-10.00)
[2025-04-10 10:57] LABS: ALT 24 U/L (4-34); AST 38 U/L (14-36); African American GFR (CKD) >90 (>60 ml/min/1.73 sqM); Albumin 4.5 g/dL (3.5-5.0); Alcohol <10 mg/dL; Alkaline Phosphatase 98 U/L (38-126); Amylase 71 U/L (30-110); Anion Gap 12 mmol/L; Blood Urea Nitrogen 19 mg/dL (7-17); Calcium 10.1 mg/dL (8.4-10.2); Carbon Dioxide 21 mmol/L (22-30); Chloride 111 mmol/L (98-107); Glucose 138 mg/dL (74-99); Lipase 119 U/L (23-300); Non-African American GFR(CKD) >90 (>60 ml/min/1.73 sqM); Potassium 3.9 mmol/L (3.5-5.1); Sodium 144 mmol/L (137-145); Total Bilirubin 0.4 mg/dL (0.2-1.3)
[2025-04-10] MEDS: MAGNESIUM SULFATE-D5W PMX 1 GM in DEXTROSE/WATER 1 100ML.BAG IVPB ONE ×2 (10:58→14:04)
[2025-04-10] MEDS: MORPHINE SULFATE 2 MG/ML SYRINGE IVP STA (11:00)
[2025-04-10 11:35] VITALS: RESP 18
[2025-04-10 11:37] LABS: INR 0.9 (<1.2); Prothrombin Time 10.4 sec (10.0-12.5)
--- NOTE | 2025-04-10 12:24 | CT ---
EXAMINATION TYPE: CT abdomen pelvis w con DATE OF EXAM: 04/10/2025 11:56 AM COMPARISON: 04/27/2023 CLINICAL INDICATION: Female, 49 years old with history of abdominal pain. generalized with n/v; abdom inal pain with nausea , Vomiting TECHNIQUE: Axial CT abdomen pelvis w con;Sagittal and coronal reformats were created on a separate w orkstation. Contrast used:80 ml mL of Isovue 300 with IV Contrast, (none if empty) Oral contrast used: without Oral Contrast (none if empty) CT DLP: 437.4 mGycm, Automated exposure control for dose reduction was used. FINDINGS: LOWER CHEST: Unremarkable ABDOMEN LIVER: Periportal edema noted. GALLBLADDER AND BILE DUCTS: The gallbladder is surgically absent. PANCREAS: Unremarkable. SPLEEN: Unremarkable. ADRENAL GLANDS: Unremarkable. KIDNEYS AND URETERS: No evidence of hydronephrosis or obstructing renal calculus. The ureters are unr emarkable. PELVIS BLADDER: No evidence for wall thickening or mass given limitations of exam. REPRODUCTIVE: The uterus is surgically absent. ABDOMEN & PELVIS STOMACH AND BOWEL: No evidence of bowel obstruction. PERITONEUM/RETROPERITONEUM: No evidence of pneumoperitoneum or free fluid. VASCULATURE: No evidence of aortic aneurysm. MUSCULOSKELETAL: No acute osseous abnormalities, surgical changes spine. Hardware appears intact. Fix ation hardware L4-L5 with discectomy appears intact. LYMPH NODES: No gross evidence for lymphadenopathy. SOFT TISSUE/ABDOMINAL WALL: Unremarkable IMPRESSION: 1. No evidence for acute abdominal process. No evidence for bowel obstruction. 2. The appendix is not visualized. 3. Cholecystectomy changes. 4. Periportal edema in the liver. 5. No evidence for obstructive uropathy or renal calculus. [facility], , 04/10/2025 12:22 PM
[2025-04-10] MEDS ORDERED: NALOXONE 0.4 MG/ML 1 ML VIAL IV PRN (13:42)
[2025-04-10] MEDS ORDERED: ONDANSETRON 4 MG/2 ML VIAL IVP PRN (13:42)
--- NOTE | 2025-04-10 13:45 | ED ---
General Adult HPI - General Chief complaint: Nausea/Vomiting/Diarrhea Stated complaint: vomiting Time Seen by Provider: 04/10/25 10:20 Source: patient, RN notes reviewed, old records reviewed Mode of arrival: ambulatory Limitations: no limitations - History of Present Illness Initial comments: Patient is a 49-year-old female presents emergency department for nausea, vomiting, diarrhea, as well as intractable pain. Location abdomen positive back. She is on Suboxone for chronic pain. Does present appearing to be some mild opiate withdrawals if she does not take her Suboxone today. Presents for further evaluation. Denies any chest pain shortness of breath. Denies any fevers. No longer has a gallbladder. Presents for further evaluation. Has generalized pain with no focal area of tenderness. Denies diarrhea or constipation. States she has had numerous episodes of nonbilious nonbloody emesis. Symptoms started last night. She does have a history of daily alcohol use but denies withdrawal symptoms at this time. - Related Data Home Medications Medication Instructions Recorded Confirmed Albuterol Inhaler [Ventolin Hfa 2 puff INHALATION RT-QID PRN 04/10/25 04/10/25 Inhaler] Buprenorphine HCl/Naloxone HCl 1 film SL DAILY 04/10/25 04/10/25 [Suboxone 2 mg-0.5 mg Sl Film] Dextroamphetamine/Amphetamine 10 mg PO DAILY@1200 04/10/25 04/10/25 [Adderall] Dextroamphetamine/Amphetamine 20 mg PO BID@0330,0900 04/10/25 04/10/25 [Adderall] Gabapentin 300 mg PO TID 04/10/25 04/10/25 Ibuprofen [Motrin] 800 mg PO DAILY PRN 04/10/25 04/10/25 Lurasidone [Latuda] 80 mg PO DAILY 04/10/25 04/10/25 Pantoprazole Sodium [Protonix] 20 mg PO BID 04/10/25 04/10/25 traZODone HCL [Desyrel] 50 mg PO HS 04/10/25 04/10/25 Previous Rx's Medication Instructions Recorded FLUoxetine HCL [PROzac] 20 mg PO DAILY 30 Days #30 cap 10/15/23 cloNIDine HCL [Catapres] 0.1 mg PO HS 30 Days #30 tab 10/15/23 Allergies Allergy/AdvReac Type Severity Reaction Status Date / Time Sulfa (Sulfonamide Allergy Severe Rash/Hives Verified 04/10/25 10:46 Antibiotics) Review of Systems ROS Statement: Those systems with pertinent positive or pertinent negative responses have been documented in the HPI. Review of Systems: CONST: Denies fever EYES: Denies blurry vision ENT: Denies nasal congestion C/V: Denies Chest pain RESP: Denies shortness of breath GI: Endorses nonspecific abdominal pain : Denies dysuria SKIN: Denies rash. MSK: Endorses back pain NEURO: Denies headache ROS Other: All systems not noted in ROS Statement are negative. Past Medical History Past Medical History: No Reported History Additional Past Medical History / Comment(s): KIDNEY STONES History of Any Multi-Drug Resistant Organisms: None Reported Past Surgical History: Section, Cholecystectomy, Hysterectomy Additional Past Surgical History / Comment(s): breast augmentation Past Anesthesia/Blood Transfusion Reactions: No Reported Reaction Past Psychological History: Anxiety, Bipolar, Depression Smoking Status: Current every day smoker Past Alcohol Use History: Abuse - Past Family History Father Family Medical History: Unable to Obtain Mother Family Medical History: Unable to Obtain General Exam - General Exam Comments Initial Comments: General: Appears dehydrated. No evidence of alcohol withdrawals at this time. Possible opiate withdrawals. HEAD: Normal with no signs of head trauma. EYES: PERRLA, EOMI, conjunctiva normal, no discharge. ENT: Hearing grossly intact, normal oropharynx. RESPIRATORY: Clear breath sounds bilaterally. No wheezes, rales, or rhonchi. C/V: Mild bradycardia. S1 and S2 auscultated, no edema, peripheral pulses 2+ and intact throughout ABD: Abdomen soft, nondistended. General nonfocal tenderness to palpation. Seems to be somewhat exaggerated. Could be related to opiate withdrawal. No guarding or rebound tenderness. No peritoneal signs. EXT: Normal range of motion, no obvious deformity SKIN: No rashes or lesions observed on exposed skin. NEURO: Alert and oriented x 4. Cranial nerves II-XII intact. No focal sensory or strength deficits. Limitations: no limitations Course Vital Signs 04/10/25 04/10/25 04/10/25 10:05 11:34 14:09 Temperature 96.7 F L Pulse Rate 61 38 L 44 L Respiratory 22 18 18 Rate Blood Pressure 123/69 134/80 124/76 O2 Sat by Pulse 100 98 99 Oximetry Medical Decision Making - Medical Decision Making Was pt. sent in by a medical professional or institution (ZEY[facility] Bae, [employer], urgent care, hospital, or custodial...) When possible be specific @ -No Did you speak to anyone other than the patient for history (EMS, parent, family, police, friend...)? What history was obtained from this source @ -No Did you review nursing and triage notes (agree or disagree)? Why? @ -I reviewed and agree with nursing and triage notes Were old charts reviewed (outside hosp., previous admission, EMS record, old EKG, old radiological studies, urgent care reports/EKG's, custodial records)? Report findings @ -All charts reviewed confirming patient is on Suboxone she has her prescription with her. She did not take it today. Differential Diagnosis (chest pain, altered mental status, abdominal pain women, abdominal pain men, vaginal bleeding, weakness, fever, dyspnea, syncope, headache, dizziness, GI bleed, back pain, seizure, CVA, palpatations, mental health, musculoskeletal)? @ -Differential Abdominal Pain Women: Appendicitis, Cholecystitis, diverticulosis, ischemic bowel, pancreatitis, hepatitis, UTI, gastroenteritis, AAA, incarcerated hernia, bowel obstruction, constipation, inflammatory bowel, hepatitis, peptic ulcer disease, splenic infarction, perforated viscus, vulvitis, ovarian torsion, PID, kidney stone, placenta abruption, this is not meant to be an all-inclusive list EKG interpreted by me (3pts min.). @ -As above X-rays interpreted by me (1pt min.). @ -None done CT interpreted by me (1pt min.). @ -CT abdomen pelvis reveals no obvious acute intra-abdominal process. Some periportal edema in the liver which is nonspecific. U/S interpreted by me (1pt. min.). @ -None done What testing was considered but not performed or refused? (CT, X-rays, U/S, labs)? Why? @ -None What meds were considered but not given or refused? Why? @ -None Did you discuss the management of the patient with other professionals (professionals i.e. ZEYAD Bae, [employer], lab, RT, psych nurse, social research assistant, elevators inspector, teacher, motorcycle police officer, human services case manager)? Give summary @ -Discussed with Dr. Griggs who accepted the admission. Was smoking cessation discussed for >3mins.? @ -No Was critical care preformed (if so, how long)? @ -No Were there social determinants of health that impacted care today? How? (Homelessness, low income, unemployed, alcoholism, drug addiction, transportation, low edu. Level, literacy, decrease access to med. care, fci, rehab)? @ -No Was there de-escalation of care discussed even if they declined (Discuss DNR or withdrawal of care, Hospice)? DNR status @ -No What co-morbidities impacted this encounter? (DM, HTN, Smoking, COPD, CAD, Cancer, CVA, ARF, Chemo, Hep., AIDS, mental health diagnosis, sleep apnea, morbid obesity)? @ -Suboxone use Was patient admitted / discharged? Hospital course, mention meds given and route, prescriptions, significant lab abnormalities, going to OR and other pertinent info. @ -Patient presents emergency department with intractable nausea and vomiting with some chronic pain in her abdomen and back. She did not take her normal Suboxone today. Symptoms could be somewhat related to opiate withdrawal in addition to nausea and vomiting. No obvious symptoms of alcohol withdrawal at this time. Vital signs initially show mild bradycardia with heart rates in the 50s. Will obtain abdominal labs and CT. Patient be given IV fluids, analgesia med, Zofran. She was in agreement this plan. Patient's heart rates prior to receiving any medication when at rest occasionally with dropped down to high 30s, but mostly low 40s. When she wakes up or is agitated or stimulated, she increases to upper 40s to 60s. EKG shows no signs of acute ischemia. Empirically given 2 g of magnesium. Will continue to monitor. CT abdomen pelvis negative for any obvious acute process. Labs remarkable for leukocytosis of 16. Remainder the labs unremarkable except for mild hypomagnesemia of 1.5 but she is not receiving supplementation. Alcohol level undetectable. Urine studies are still pending. On reevaluation, I discussed with the patient and she will begin her home Suboxone. Recommended admission for observation for the bradycardia as well as the intractable nausea and vomiting and dehydration. She was in agreement this plan. Spoke with the admitting provider, Dr. Griggs who accepted the admission. Consult placed to cardiology for the bradycardia. Seems to be asymptomatic. Undiagnosed new problem with uncertain prognosis? @ -No Drug Therapy requiring intensive monitoring for toxicity (Heparin, Nitro, Insulin, Cardizem)? @ -No Were any procedures done? @ -No Diagnosis/symptom? @ -Intractable nausea and vomiting, abdominal pain of unknown etiology, chronic pain, bradycardia Acute, or Chronic, or Acute on Chronic? @ -Acute Uncomplicated (without systemic symptoms) or Complicated (systemic symptoms)? @ -Complicated Side effects of treatment? @ -No Exacerbation, Progression, or Severe Exacerbation? @ -No Poses a threat to life or bodily function? How? (Chest pain, [place], [place], pneumonia, PE, COPD, DKA, ARF, appy, cholecystitis, CVA, Diverticulitis, Homicidal, Suicidal, threat to staff... and all critical care pts) @ -Potentially, yes - Lab Data Result diagrams: 04/10/25 10:24 04/10/25 10:16 Lab Results 04/10/25 04/10/25 04/10/25 Range/Units 10:16 10:16 10:16 WBC (4.50-10.00) 10*3/uL RBC (4.10-5.20) 10*6/uL Hgb (12.0-15.0) g/dL Hct (37.2-46.3) % MCV (80.0-97.0) fL MCH (27.0-32.0) pg MCHC (32.0-37.0) g/dL Plt Count (140-440) 10*3/uL MPV (9.5-12.2) fL Immature Gran % (Auto) % Neutrophils % % Lymphocytes % % Monocytes % % Eosinophils % % Basophils % % Immature Gran # (0.00-0.04) 10*3/uL Neutrophils # (1.80-7.70) 10*3/uL Lymphocytes # (0.90-5.00) 10*3/uL Monocytes # (0.20-1.00) 10*3/uL Eosinophils # (0.04-0.35) 10*3/uL Basophils # (0.00-0.10) 10*3/uL PT (10.0-12.5) sec INR (<1.2) APTT (22.0-30.0) sec Sodium 144 (137-145) mmol/L Potassium 3.9 (3.5-5.1) mmol/L Chloride 111 H (98-107) mmol/L Carbon Dioxide 21 L (22-30) mmol/L Anion Gap 12 mmol/L BUN 19 H (7-17) mg/dL Creatinine 0.55 (0.52-1.04) mg/dL Est GFR (CKD-EPI)AfAm >90 (>60 ml/min/1.73 sqM) Est GFR (CKD-EPI)NonAf >90 (>60 ml/min/1.73 sqM) Glucose 138 H (74-99) mg/dL Plasma Lactic Acid Malcolm 1.6 (0.7-2.0) mmol/L Calcium 10.1 (8.4-10.2) mg/dL Magnesium 1.5 L (1.6-2.3) mg/dL Total Bilirubin 0.4 (0.2-1.3) mg/dL AST 38 H (14-36) U/L ALT 24 (4-34) U/L Alkaline Phosphatase 98 (38-126) U/L Total Protein 7.0 (6.3-8.2) g/dL Albumin 4.5 (3.5-5.0) g/dL Amylase 71 (30-110) U/L Lipase 119 (23-300) U/L Serum Alcohol <10 mg/dL 04/10/25 04/10/25 Range/Units 10:24 11:02 WBC 16.76 H (4.50-10.00) 10*3/uL RBC 4.36 (4.10-5.20) 10*6/uL Hgb 13.7 (12.0-15.0) g/dL Hct 40.3 (37.2-46.3) % MCV 92.4 (80.0-97.0) fL MCH 31.4 (27.0-32.0) pg MCHC 34.0 (32.0-37.0) g/dL Plt Count 252 (140-440) 10*3/uL MPV 10.5 (9.5-12.2) fL Immature Gran % (Auto) 0.4 % Neutrophils % 88.6 % Lymphocytes % 5.2 % Monocytes % 4.7 % Eosinophils % 0.9 % Basophils % 0.2 % Immature Gran # 0.06 H (0.00-0.04) 10*3/uL Neutrophils # 14.87 H (1.80-7.70) 10*3/uL Lymphocytes # 0.87 L (0.90-5.00) 10*3/uL Monocytes # 0.78 (0.20-1.00) 10*3/uL Eosinophils # 0.15 (0.04-0.35) 10*3/uL Basophils # 0.03 (0.00-0.10) 10*3/uL PT 10.4 (10.0-12.5) sec INR 0.9 (<1.2) APTT 21.0 L (22.0-30.0) sec Sodium (137-145) mmol/L Potassium (3.5-5.1) mmol/L Chloride (98-107) mmol/L Carbon Dioxide (22-30) mmol/L Anion Gap mmol/L BUN (7-17) mg/dL Creatinine (0.52-1.04) mg/dL Est GFR (CKD-EPI)AfAm (>60 ml/min/1.73 sqM) Est GFR (CKD-EPI)NonAf (>60 ml/min/1.73 sqM) Glucose (74-99) mg/dL Plasma Lactic Acid Malcolm (0.7-2.0) mmol/L Calcium (8.4-10.2) mg/dL Magnesium (1.6-2.3) mg/dL Total Bilirubin (0.2-1.3) mg/dL AST (14-36) U/L ALT (4-34) U/L Alkaline Phosphatase (38-126) U/L Total Protein (6.3-8.2) g/dL Albumin (3.5-5.0) g/dL Amylase (30-110) U/L Lipase (23-300) U/L Serum Alcohol mg/dL - EKG Data -: EKG Interpreted by Me EKG Comments: 12-lead Electrocardiogram Interpretation Note EKG was reviewed and interpreted by myself. 12-lead ECG performed at 1046 is interpreted by me as revealing sinus bradycardia at a rate of 38 beats per m inute. [place] is normal. [place] interval is 149 ms, QRS durations 80 ms, QTc is 1431 ms.. There were no ST or T wave abnormalities to suggest myocardial ischemia or injury. R wave progression across the precordium was satisfactory. By my interpretation this EKG is non-diagnostic for acute ischemia. Disposition Clinical Impression: Bradycardia, Intractable nausea and vomiting, Dehydration, Chronic pain Disposition: ADMITTED IP TO THIS HOSP Condition: Stable Time of Disposition: 13:40
[2025-04-10] MEDS ORDERED: ALBUTEROL NEBULIZED 2.5 MG/3 ML INHALATION PRN (14:41)
[2025-04-10] MEDS: GABAPENTIN 300 MG CAP PO SCH (16:17)
[2025-04-10] MEDS: IBUPROFEN 800 MG TAB PO PRN (16:17)
[2025-04-10 16:34] VITALS: BP 117/72; PULSE 76
[2025-04-10] MEDS ORDERED: traZODone HCL 50 MG TAB PO SCH (21:00)
[2025-04-10] MEDS ORDERED: PANTOPRAZOLE 40 MG TABLET PO SCH (21:00)
[2025-04-10] MEDS ORDERED: cloNIDine HCL 0.1 MG TAB PO SCH (21:00)
[2025-04-11] MEDS ORDERED: SUBOXONE SUBLINGUAL SCH (09:00)
[2025-04-11] MEDS ORDERED: PANTOPRAZOLE 40 MG/10 ML VIAL IV SCH (09:00)
[2025-04-11] MEDS ORDERED: LURASIDONE 80 MG TAB PO SCH (09:00)
[2025-04-11] MEDS ORDERED: FLUoxetine HCL 20 MG CAP PO SCH (09:00)
[2025-04-11] MEDS ORDERED: ADDERALL 10 MG PO SCH (12:00)
--- NOTE | 2025-04-11 21:15 | HP ---
HISTORY AND PHYSICAL CHIEF COMPLAINT: Abdominal pain. HISTORY OF PRESENT ILLNESS: This 49-year-old white female presented to the emergency room with abdominal pain, nausea and vomiting. She was also quite dehydrated. Etiology for the nausea was not clear. She is on Suboxone and had not been able to take it and it is wondered if the part of this could be opiate withdrawal. She has had no hematemesis, melena, hematochezia, fever and chills, etc. She also was bradycardic with a rate initially of 38, and then running between 40 and 45. She has had this before. REVIEW OF SYSTEMS: Unobtainable. Past medical history, family history, personal and social histories reveal that she is allergic to sulfa. She has been on pantoprazole, Adderall, Suboxone, ibuprofen, trazodone, clonidine, and Ventolin. The remainder of her history is unremarkable. She does smoke. She is a recovering alcoholic. PHYSICAL EXAMINATION: VITAL SIGNS: Blood pressure is 110/72 with a pulse of 48, respirations were 16. GENERAL: She appeared to be dehydrated. SKIN: Dry. HEAD, EARS, EYES, NOSE, MOUTH AND THROAT: Normal except for dry mucous membranes. CHEST: Clear. CARDIAC: Normal except for bradycardia. ABDOMEN: Soft, nontender. Bowel sounds are present. EXTREMITIES: Normal. IMPRESSION: 1. Abdominal pain. 2. Nausea and vomiting. 3. Dehydration. 4. Bradycardia. PLAN: 1. Bedrest. 2. IV fluids. 3. Antiemetics. 4. Cardiology consult. MMODL / DGN: [id number] /
--- NOTE | 2025-04-12 04:54 | DS ---
DISCHARGE SUMMARY CHIEF COMPLAINT: Abdominal pain and intractable nausea and vomiting with bradycardia. HISTORY OF PRESENT ILLNESS AND PHYSICAL EXAMINATION: Details of this lady's history and physical can be found in the initial workup. LABORATORY STUDIES: While she is in a hospital, she had laboratory studies, details of which can be found in the laboratory section of her chart. COURSE IN THE HOSPITAL: After admission, she was placed on bedrest, started on intravenous fluids and was to be seen by Cardiology. She signed out against medical advice. FINAL DIAGNOSES: 1. Intractable nausea and vomiting. 2. Abdominal pain. 3. Dehydration. 4. Bradycardia. OPERATIONS: None. CONSULTATIONS: None. MMODL / IJN: [id number] /
== END 2025-04-10 17:10 | disposition left against medical advice (07) ==
LOC: EC 10:02 → 3SCARD 13:44
PROVIDERS: ADMIT Family Medicine; ATTEND Family Medicine
DX: R11.2 Nausea with vomiting, unspecified (principal); Z53.29 Procedure and treatment not carried out because of patient's decision for other reasons; E86.0 Dehydration; R00.1 Bradycardia, unspecified; R10.9 Unspecified abdominal pain; G89.29 Other chronic pain; F31.9 Bipolar disorder, unspecified; F41.9 Anxiety disorder, unspecified; F17.200 Nicotine dependence, unspecified, uncomplicated; Z79.899 Other long term (current) drug therapy; Z88.2 Allergy status to sulfonamides
CPT/HCPCS: 96365; 96366; 96375; 99285; 36415; 93005; 80053; 82150; 83605; 83690; 83735; 85025; 85610; 85730; 74177; G0378; G0480; J2405; J2270; J3475; Q9967; J2470; 80320

== ENCOUNTER → 2025-04-20 | Outpatient (CLI) | payer OTHER ==
--- NOTE | 2025-05-22 13:44 | EST ---
EXERCISE STRESS STUDY PERFORMED: Event monitor. CLINICAL INFORMATION: Baseline rhythm is a sinus mechanism with intraventricular conduction delay. The average rate 77 beats per minute, minimum 31, and maximum 173 beats per minute. No atrial fibrillation was noted. A 3.1 second pause was noted on the 02 of May at 15:38 p.m. that was asymptomatic. Ventricular ectopic activity burden was 2% with single PVCs. CONCLUSION: 1. Sinus mechanism baseline rhythm. 2. Episode of sinus pauses with the longest being 3.1 seconds. 3. Rare single PVCs. MMODL / IJN: [id number] /
== END | disposition home or self-care (01) ==
LOC: RADECHMAIN 13:29
PROVIDERS: ATTEND Family Medicine
DX: I49.3 Ventricular premature depolarization (principal); R00.1 Bradycardia, unspecified; R11.10 Vomiting, unspecified; R42 Dizziness and giddiness
CPT/HCPCS: 93270